=== PATIENT | male | born 1990 | race Caucasian/White ===

== ENCOUNTER 2019-12-02 10:52 | Inpatient (IN) | payer BC, MEDICAID, OTHER ==
[~2019-12-02] VITALS: Ht 170.2 cm; Wt 50.8 kg
[2019-12-02] MEDS ORDERED: IV NORMAL SALINE 1000ML BAG 1,000 ML IV SCH (11:12)
--- NOTE | 2019-12-02 11:20 | PHYS DOC ---
Past Medical History Past Medical History: Pneumonia, Other Additional Past Medical Histor: muscular dystrophy, trache, pneumothorax, silent aspirations, contractures (NIKITA JOEL [employer]) Past Surgical History: Tonsillectomy, Other Additional Past Surgical Histo: trache, rods and screws in spine, right ear grafts (NIKITA JOEL [employer]) Smoking Status: Never Smoker Alcohol Use: None Drug Use: None (NIKITA JOEL [employer]) General Adult EDM: Chief Complaint: BLOOD IN URINE HPI: HPI: Patient is a 29 year old male who presents with 2 days of back pain and abdominal pain with pain with urination. He states that he is also been constipated but had a bowel movement yesterday. He states he also ran a fever last night. He states he does not have any abdominal pain or back pain today. He was afebrile here in the ED. He had taken some ibuprofen. Patient currently complains of no pain. Patient denies chest pain, shortness of breath, cough, nausea, vomiting, diarrhea, headache, dizziness, focal weakness. Patient is in a motorized wheelchair. He has history of MS, trach, pneumothorax, silent aspirations, contractures, rods and screws in spine, tonsillectomy, right ear grafts. (NIKITA JOEL [employer]) Review of Systems: Review of Systems: Constitutional: + fever or chills. [] Eyes: Denies change in visual acuity. [] HENT: Denies nasal congestion or sore throat. [] Respiratory: Denies cough or shortness of breath. [] Cardiovascular: Denies chest pain or edema. [] GI: + abdominal pain, denies nausea, vomiting, bloody stools or diarrhea. +Constipation [] : +dysuria, +hematuria. [] Musculoskeletal: Bilateral flank back pain or denies joint pain. [] Integument: Denies rash. [] Neurologic: Denies headache, focal weakness or sensory changes. [] Endocrine: Denies polyuria or polydipsia. [] Lymphatic: Denies swollen glands. [] Psychiatric: Denies depression or anxiety. [] (NIKITA JOEL [employer]) Heart Score: Risk Factors: Risk Factors: DM, Current or recent (<one month) smoker, HTN, HLP, family history of CAD, obesity. Risk Scores: Score 0 - 3: 2.5% MACE over next 6 weeks - Discharge Home Score 4 - 6: 20.3% MACE over next 6 weeks - Admit for Clinical Observation Score 7 - 10: 72.7% MACE over next 6 weeks - Early Invasive Strategies (NIKITA JOEL [employer]) Allergies: Allergies: Allergies Coded Allergies Type Severity Reaction Last Updated Verified vancomycin Allergy Severe hives 09/08/14 No Sulfa (Sulfonamide Antibiotics) Allergy Intermediate 09/08/14 No amoxicillin Adverse Reaction Intermediate diarrhea 09/08/14 No clavulanic acid Adverse Reaction Intermediate diarrhea 09/08/14 No clindamycin Adverse Reaction Intermediate diarrhea 09/08/14 No (NIKITA JOEL [employer]) Physical Exam: PE: Constitutional: Well developed, well nourished, no acute distress, non-toxic appearance. [] HENT: Normocephalic, atraumatic, bilateral external ears normal, oropharynx moist, no oral exudates, nose normal. [] Eyes: PERRLA, EOMI, conjunctiva normal, no discharge. [] Neck: Normal range of motion, no tenderness, supple, no stridor. [] Cardiovascular:Heart rate regular rhythm, no murmur [] Lungs & Thorax: Bilateral breath sounds clear to auscultation [] Abdomen: Bowel sounds normal, soft, no tenderness, no masses, no pulsatile ma sses. [] Skin: Warm, dry, no erythema, no rash. [] Back: No tenderness, no CVA tenderness. [] Extremities: No tenderness, no cyanosis, no clubbing, ROM intact, no edema. Contractures. [] Neurologic: Alert and oriented X 3, normal motor function, normal sensory function, no focal deficits noted. [] Psychologic: Affect normal, judgement normal, mood normal. [] (NIKITA JOEL APRN) EKG: EK and read by Dr Chakraborty as Sinus Tachycardia and no STEMI (NIKITA JOEL APRN) Radiology/Procedures: Radiology/Procedures: [] Impression: [facility] [address] [place], [place] [id number] IMAGING REPORT Signed PATIENT: LALY NAVARRO RACCOUNT: [id number] : 1990 LOCATION: ER AGE: 29 SEX: M EXAM STATUS: REG ER ORD. PHYSICIAN: NIKITA JOEL APRN REASON: pain, urinary symptoms, fever PROCEDURE: CT ABD PELV W/ IV CONTRST ONLY EXAM: CT Abdomen and Pelvis with IV contrast INDICATION: Reason: pain, urinary symptoms, fever / Spl. Instructions: omni 300 75ml / History: TECHNIQUE: Multi-detector row CT images were acquired from the lung bases through the abdomen and pelvis with the use of IV contrast. Sagittal and coronal images were acquired from the transaxial data. All CT scans performed at this facility utilize dose optimization techniques as appropriate to the exam, including the following: Automated exposure control and adjustment of the mA and/or KV according to patient size (this includes techniques or standardized protocols for targeted exams where dose is indication/reason for exam). IV CONTRAST: Administered ORAL CONTRAST: Not administered COMPARISON: None FINDINGS: LOWER CHEST: Unremarkable LIVER: Unremarkable BILIARY SYSTEM: Gallbladder is unremarkable. Bile ducts are not dilated. PANCREAS: Unremarkable SPLEEN: Unremarkable ADRENALS: Unremarkable KIDNEYS & URETERS: Unremarkable BLADDER: Marked urinary bladder distention with wall thickening REPRODUCTIVE ORGANS: Unremarkable GASTROINTESTINAL: The stomach contains a percutaneous gastrostomy tube. The small bowel is fluid-filled but not distended. Some fibrofatty infiltration of the distal small bowel loops could reflect the sequelae of previous inflammation. Colon shows mostly liquid stool except in the rectum where fecal distention with solid debris to a 5.3 cm transverse diameter is present all the way to the anorectal junction.. The appendix is normal. MESENTERY/PERITONEUM/RETROPERITONEUM: Unremarkable VASCULAR: Unremarkable LYMPH NODES: No adenopathy OSSEOUS & SOFT TISSUES: Diffuse muscular atrophy in a pattern suggesting chronic quadriplegia. Extensive raphael and pedicle screw construct spinal fusion hardware is present from the sacrum through the upper thoracic spine and beyond the included field of view. There is residual mild leftward convexity scoliotic curvature. IMPRESSION: 1. Findings suspicious for cystitis with distended urinary bladder. Consider bladder decompression. 2. Findings compatible with rectal fecal impaction. 3. Evidence of chronic neurologic disease with extensive thoracolumbar spinal dorsal fusion hardware. 4. Fibrofatty infiltration of the distal small bowel wall, possibly reflecting previous episodes of bowel inflammation. Correlate clinically. Electronically signed by: Amaury Woo MD (12/02/2019 1:01 PM) [id number] DICTATED and SIGNED BY: AMAURY WOO MD DATE: 12/02/19 1301 [facility] [address] [place] [address] IMAGING REPORT Signed PATIENT: LALY NAVARRO RACCOUNT: [id number] : 1990 LOCATION: ER AGE: 29 SEX: M EXAM STATUS: REG ER ORD. PHYSICIAN: NIKITA JOEL APRN REASON: Fever, history of aspiration. PROCEDURE: PORTABLE CHEST 1V EXAM: PORTABLE CHEST 1V INDICATION: Reason: Fever, history of aspiration. / Spl. Instructions: / History: . TECHNIQUE: Single view COMPARISON: Abdomen CT of earlier the same day FINDINGS: A tracheostomy tube is present. The heart size is normal. The great vessels appear unremarkable. There is no hilar or mediastinal mass. The lungs are hypoventilatory and show mild prominence of the pulmonary interstitium. No focal infiltrates.. There is no pleural effusion or pneumothorax. There are no significant osseous abnormalities. Posterior raphael and pedicle screw construct spinal fusion hardware throughout the visualized thoracic spine is present. IMPRESSION: Tracheostomy tube with no obvious radiographic findings suspicious for pneumonia or aspiration pneumonitis. Electronically signed by: Amaury Woo MD (12/02/2019 1:34 PM) [id number] DICTATED and SIGNED BY: AMAURY WOO MD DATE: 12/02/19 1334 (NIKITA JOEL APRN) Course & Med Decision Making: Course & Med Decision Making Pertinent Labs and Imaging studies reviewed. (See chart for details) See HPI. Alert and oriented x4. Speaks in full complete sentences. Abdomen is soft and nontender. Vital signs within normal limits except heart rate of 120. Afebrile. No CVA tenderness. I Have started a liter of normal saline and ci profloxacin. Patient will have blood cultures and lactic acid drawn. CT shows: IMPRESSION: 1. Findings suspicious for cystitis with distended urinary bladder. Consider bladder decompression. 2. Findings compatible with rectal fecal impaction. 3. Evidence of chronic neurologic disease with extensive thoracolumbar spinal dorsal fusion hardware. 4. Fibrofatty infiltration of the distal small bowel wall, possibly reflecting previous episodes of bowel inflammation. Correlate clinically. I have ordered a Bladder scan and nurse to Straight Cath if 300ml or more in bladder. Patient is given a second liter of NS. I have also ordered a enema for the patient. Patient is afebrile, WBC normal, lactic normal. Urinalysis shows nitrites. Patient to be admitted for pyelonephritis and his heart rate remains constant at 120. He is a 2 L of fluid. Grandmother states that she only stays with the patient and that she needs to stay with the patient and she would like him transferred to . She states he has to be on a ventilator at night. She states she could bring the ventilators because we have to have his specific numbers he has to be on. I told the grandmother that we can take care of this patient here and currently states that it could be 24 hours before the patient even gets a room. I have let the grandmother know that [facility] nor would let her stay with the patient 15/09 especially due to COVID and in the ICU. Patient's grandmother states " You do not understand. He has to have me there because he is so soft-spoken and he has needs." I told the patient that the nurses will be checking on him frequently and they would take good care of him here. Patient is refusing an enema. He states he wants another dose of MiraLAX and he will be able to have a bowel movement. He states [address] Chakraborty has spoken to the family as ICU will not let her stay. Dr Chakraborty has spoken to Dr Rodlan and Dr. Roldan states that the family can bring in their own ventilator is for us to use here. Dr. Phillips has admitted to the patient. [] (NIKITA JOEL APRN) Erinn Disclaimer: Erinn Disclaimer: This electronic medical record was generated, in whole or in part, using a voice recognition dictation system. (NIKITA JOEL APRN) Departure Departure Impression: Primary Impression: Pyelonephritis Disposition: ADMITTED INPT THIS HOSP Condition: STABLE Referrals: NON,STAFF (PCP) Attending Signature Attending Signature I have reviewed the non-physician practitioner's documentation, personally taken the patient's history, performed an exam and agree with the physical findings, clinical impression, and management plan. In brief patient is a 29-year-old male with a history of multiple sclerosis who presents with a chief complaint of flank pain and dysuria. Urine does show evidence of infection. Clinically this is concerning for pyelonephritis. Patient will be given ciprofloxacin given his multiple drug allergies. He will require hospitalization for further antibiotic treatment. (MOSHE CHAKRABORTY DO) Attending Signature I have participated in the care of this patient and I have reviewed and agree with all pertinent clinical information above including history, exam, and recommendations. (NIKITA JOEL APRN) NIKITA JOEL APRN Dec 02, 2019 11:20 MOSHE CHAKRABORTY DO Dec 02, 2019 13:27
[2019-12-02 11:25] LABS: BILIRUBIN,URINE NEGATIVE (NEG); CLARITY,URINE TURBID; COLOR,URINE RED; NITRITE,URINE POSITIVE (NEG); PROTEIN,URINE >=300 mg/dL (NEG-TRACE)
[2019-12-02] MEDS ORDERED: CIPROFLOXACIN 400MG PREMIX 200 ML IV ONE (11:30)
[2019-12-02 11:36] LABS: RBC,URINE 20-40 /HPF (0-2); WBC,URINE TNTC /HPF (0-4)
[2019-12-02 11:37] LABS: BACTERIA,URINE FEW /HPF (0-FEW)
[2019-12-02 12:00] LABS: BASO % 0 % (0-3); EOS % 1 % (0-3); HEMATOCRIT 51.3 % (39.0-53.0); HEMOGLOBIN 17.1 g/dL (13.0-17.5); LYMPH # 0.5 x10^3/uL (1.0-4.8); LYMPH % 6 % (24-48); MEAN CORPUSCULAR HEMOGLOBIN 30 pg (25-35); MEAN CORPUSCULAR HGB CONC 33 g/dL (31-37); MEAN CORPUSCULAR VOLUME 91 fL (79-100); MONO # 0.5 x10^3/uL (0.0-1.1); MONO % 6 % (0-9); NEUT # 7.4 x10^3/uL (1.8-7.7); NEUT % 88 % (31-73); PLATELET COUNT 115 x10^3/uL (140-400); RED BLOOD COUNT 5.66 x10^6/uL (4.30-5.70); RED CELL DISTRIBUTION WIDTH 14.1 % (11.5-14.5); WHITE BLOOD COUNT 8.4 x10^3/uL (4.0-11.0)
[2019-12-02 12:19] LABS: ANION GAP 10 (6-14); BLOOD UREA NITROGEN 15 mg/dL (8-26); BUN/CREATININE RATIO 75 (6-20); CALCIUM 9.3 mg/dL (8.5-10.1); CARBON DIOXIDE 23 mmol/L (21-32); CHLORIDE 108 mmol/L (98-107); CREATININE 0.2 mg/dL (0.7-1.3); GFR > 300.0; GLUCOSE 123 mg/dL (70-99); POTASSIUM 3.7 mmol/L (3.5-5.1); SODIUM 141 mmol/L (136-145)
[2019-12-02 12:23] LABS: ALBUMIN 3.4 g/dL (3.4-5.0); ALBUMIN/GLOBULIN RATIO 0.8 (1.0-1.7); ALK PHOS 133 U/L (46-116); ALT (SGPT) 21 U/L (16-63); AST (SGOT) 18 U/L (15-37); LIPASE 74 U/L (73-393); TOTAL PROTEIN 7.8 g/dL (6.4-8.2)
[2019-12-02] MEDS ORDERED: CONTRAST GIVEN. MC PRN (12:30)
[2019-12-02] MEDS ORDERED: IOHEXOL 300 MG/ML 100ML VIAL. IV ONE (12:30)
[2019-12-02 12:36] LABS: PROTHROMBIN TIME PATIENT 17.1 SEC (11.7-14.0)
[2019-12-02] MEDS ORDERED: IV NORMAL SALINE 1000ML BAG 1,000 ML IV ONE (13:00)
--- NOTE | 2019-12-02 13:05 | RAD ---
EXAM: CT Abdomen and Pelvis with IV contrast INDICATION: Reason: pain, urinary symptoms, fever / Spl. Instructions: omni 300 75ml / History: TECHNIQUE: Multi-detector row CT images were acquired from the lung bases through the abdomen and pelvis with the use of IV contrast. Sagittal and coronal images were acquired from the transaxial data. All CT scans performed at this facility utilize dose optimization techniques as appropriate to the exam, including the following: Automated exposure control and adjustment of the mA and/or KV according to patient size (this includes techniques or standardized protocols for targeted exams where dose is indication/reason for exam). IV CONTRAST: Administered ORAL CONTRAST: Not administered COMPARISON: None FINDINGS: LOWER CHEST: Unremarkable LIVER: Unremarkable BILIARY SYSTEM: Gallbladder is unremarkable. Bile ducts are not dilated. PANCREAS: Unremarkable SPLEEN: Unremarkable ADRENALS: Unremarkable KIDNEYS & URETERS: Unremarkable BLADDER: Marked urinary bladder distention with wall thickening REPRODUCTIVE ORGANS: Unremarkable GASTROINTESTINAL: The stomach contains a percutaneous gastrostomy tube. The small bowel is fluid-filled but not distended. Some fibrofatty infiltration of the distal small bowel loops could reflect the sequelae of previous inflammation. Colon shows mostly liquid stool except in the rectum where fecal distention with solid debris to a 5.3 cm transverse diameter is present all the way to the anorectal junction.. The appendix is normal. MESENTERY/PERITONEUM/RETROPERITONEUM: Unremarkable VASCULAR: Unremarkable LYMPH NODES: No adenopathy OSSEOUS & SOFT TISSUES: Diffuse muscular atrophy in a pattern suggesting chronic quadriplegia. Extensive raphael and pedicle screw construct spinal fusion hardware is present from the sacrum through the upper thoracic spine and beyond the included field of view. There is residual mild leftward convexity scoliotic curvature. IMPRESSION: 1. Findings suspicious for cystitis with distended urinary bladder. Consider bladder decompression. 2. Findings compatible with rectal fecal impaction. 3. Evidence of chronic neurologic disease with extensive thoracolumbar spinal dorsal fusion hardware. 4. Fibrofatty infiltration of the distal small bowel wall, possibly reflecting previous episodes of bowel inflammation. Correlate clinically. Electronically signed by: Wayne Woo MD (12/02/2019 1:01 PM) [id number]
[2019-12-02] MEDS ORDERED: SODIUM PHOSPHATES 19/7GM 133 ML ENEMA. PR ONE (13:15)
--- NOTE | 2019-12-02 13:37 | RAD ---
EXAM: PORTABLE CHEST 1V INDICATION: Reason: Fever, history of aspiration. / Spl. Instructions: / History: . TECHNIQUE: Single view COMPARISON: Abdomen CT of earlier the same day FINDINGS: A tracheostomy tube is present. The heart size is normal. The great vessels appear unremarkable. There is no hilar or mediastinal mass. The lungs are hypoventilatory and show mild prominence of the pulmonary interstitium. No focal infiltrates.. There is no pleural effusion or pneumothorax. There are no significant osseous abnormalities. Posterior raphael and pedicle screw construct spinal fusion hardware throughout the visualized thoracic spine is present. IMPRESSION: Tracheostomy tube with no obvious radiographic findings suspicious for pneumonia or aspiration pneumonitis. Electronically signed by: Wayne Woo MD (12/02/2019 1:34 PM) [id number]
[2019-12-02] MEDS ORDERED: POLYETHYLENE GLYCOL 3350 17 GM PACKET. PO ONE (14:45)
[2019-12-02 15:04] LABS: % BANDS 18 % (0-9); % LYMPHS 7 % (24-48); % MONOS 7 % (0-10); % SEGS 68 % (35-66); PLATELET CLUMP PRESENT; PLT ESTIMATE ADEQUATE (ADEQUATE); TOXIC GRANULATION SLIGHT
[2019-12-02] MEDS ORDERED: 0.9 % SODIUM CHLORIDE 10 ML DISP.SYRIN. IV PRN (15:30)
[2019-12-02] MEDS ORDERED: HYDROcodone/APAP 5/325MG 1 TAB TABLET PO PRN (15:30)
[2019-12-02] MEDS ORDERED: LACTULOSE 20 GM/30 ML SOLUTION. PO PRN ×2 (15:30→23:45)
[2019-12-02] MEDS ORDERED: oxyCODONE/APAP 5/325 1 TAB TABLET PO PRN (15:30)
[2019-12-02] MEDS ORDERED: ACETAMINOPHEN 325 MG TABLET. PO PRN (15:30)
[2019-12-02] MEDS ORDERED: ONDANSETRON PF 4 MG/2 ML VIAL. IVP PRN (15:30)
[2019-12-02] MEDS ORDERED: MORPHINE SULFATE 2 MG/ML VIAL. IV PRN (15:30)
[2019-12-02] MEDS ORDERED: ZOLPIDEM 5 MG TABLET. PO PRN (15:30)
--- NOTE | 2019-12-02 16:52 | PDOC1 ---
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 The patient is uable to provide much details since he has a trach in place and no passy mouir valve, He seems acutely ill but currently in no acute distress, he is oriented in person and does nto seem to be in respiratory distress, no abdominal pain reported, he denies fever or chills but according to documentatiton he presented fever at home reason why he was brought to the Er for further evaluation and treatment. Patient suffers from multiple sclerosis and apparently has been wheelchair-bound for a long time now. Patient has reported had a fever last evening but he does not seem to be coughing nor having an acute chest discomfort. Patient is laying on the stretcher in no apparent distress plan of care has been explained in detail to the patient to the best of my abilities. He will be admitted for broad-spectrum antibiotic therapy and close monitoring. His laboratory data seems quite unremarkable despite having the findings on CAT scan consistent with pyelonephritis. Hopefully this is a early stages and we managed to overt complications from a generalized infection. 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 He states that he is also been constipated but had a bowel movement yesterday. He states he also ran a fever last night. He states he does not have any abdominal pain or back pain today. He was afebrile here in the ED. He had taken some ibuprofen. Patient currently complains of no pain. Patient denies chest pain, shortness of breath, cough, nausea, vomiting, diarrhea, headache, dizziness, focal weakness. Patient is in a motorized wheelchair. He has history of MS, trach, pneumothorax, silent aspirations, contractures, rods and screws in spine, tonsillectomy, right ear grafts. Past Medical History Pulmonary: Pneumonia CENTRAL NERVOUS SYSTEM: Other (Multiple sclerosis) Past Surgical History Past Surgical History: Tonsillectomy, No pertinent history (Tracheostomy in place) Family History Family History: Family History Unknown Social History Smoke: No ALCOHOL: none Drugs: None Current Problem List Problem List Problems Medical Problems: (1) Pyelonephritis Status: Acute Current Medications Current Medications Current Medications Medications (Trade) Dose Ordered Sig/Maximilian Start Time Stop Time Status Last Admin Dose Admin Acetaminophen (Tylenol) 650 mg PRN Q6HRS PRN 12/02/19 15:30 Acetaminophen/ Hydrocodone Bitart (Lortab 5/325) 1 tab PRN Q4HRS PRN 12/02/19 15:30 Ceftriaxone Sodium (Rocephin) 1 gm Q24H 12/02/19 17:00 Ciprofloxacin/ Dextrose 200 ml @ 200 mls/hr 1X ONCE 12/02/19 11:30 12/02/19 12:29 DC 12/02/19 12:08 200 MLS/HR Enoxaparin Sodium (Lovenox 40mg Syringe) 40 mg Q24H 12/02/19 21:00 Famotidine (Pepcid) 20 mg BID 12/02/19 21:00 Info (CONTRAST GIVEN -- Rx MONITORING) 1 each PRN DAILY PRN 12/02/19 12:30 12/04/19 12:29 Info (Icu Electrolyte Protocol) 1 ea DAILY 12/03/19 09:00 Iohexol (Omnipaque 300 Mg/ml) 75 ml 1X ONCE 12/02/19 12:30 12/02/19 12:31 DC 12/02/19 12:46 75 ML Lactulose (Lactulose) 20 gm PRN Q12HR PRN 12/02/19 15:30 Lorazepam (Ativan Inj) 0.5 mg PRN Q6HRS PRN 12/02/19 15:30 Morphine Sulfate (Morphine Sulfate) 2 mg PRN Q1HR PRN 12/02/19 15:30 Ondansetron HCl (Zofran) 4 mg PRN Q6HRS PRN 12/02/19 15:30 Oxycodone/ Acetaminophen (Percocet 5/325) 1 tab PRN Q4HRS PRN 12/02/19 15:30 Polyethylene Glycol (miraLAX PACKET) 17 gm 1X ONCE 12/02/19 14:45 12/02/19 14:46 DC Senna/Docusate Sodium (Senna Plus) 1 tab BID 12/02/19 21:00 Sodium Monofluorophosphate (Fleet Adult) 133 ml 1X ONCE 12/02/19 13:15 12/02/19 13:16 DC Sodium Chloride (Normal Saline Flush) 3 ml QSHIFT PRN 12/02/19 15:30 Zolpidem Tartrate (Ambien) 5 mg PRN QHS PRN 12/02/19 15:30 Allergies Allergies Allergies Coded Allergies Type Severity Reaction Last Updated Verified vancomycin Allergy Severe hives 09/08/14 No Sulfa (Sulfonamide Antibiotics) Allergy Intermediate 09/08/14 No amoxicillin Adverse Reaction Intermediate diarrhea 09/08/14 No clavulanic acid Adverse Reaction Intermediate diarrhea 09/08/14 No clindamycin Adverse Reaction Intermediate diarrhea 09/08/14 No ROS Review of System CONSTITUTIONAL: No fever or chills EYES: No recent changes SKIN: No rash or itching CARDIOVASCULAR: No chest pain, syncope, palpitations, or edema RESPIRATORY: No SOB or cough GASTROINTESTINAL: No nausea, vomiting or abdominal pain NEUROLOGICAL: No headaches or weakness ENDOCRINE: No cold or heat intolerance GENITOURINARY: No urgency or frequency of urination MUSCULOSKELETAL: No back pain or joint pain LYMPHATICS: No enlarged lymph nodes PSYCHIATRIC: No anxiety or depression Unreliable given patient's condition Physical Exam Physical Exam GEN.: No apparent distress. Alert and oriented in person HEENT: Head is normocephalic, atraumatic NECK: Supple. LUNGS: Clear to auscultation. HEART: RRR, S1, S2 present. Tachycardic peripheral pulses intact ABDOMEN: Soft, nontender. Distended positive bowel sounds. EXTREMITIES: Without any cyanosis. NEUROLOGIC: Cranial nerves II to XII grossly intact moves all extremities no sensory deficits PSYCHIATRIC: Unable to assess SKIN: No ulcerations Vitals Vitals Vital Signs Date Time Temp Pulse Resp B/P (MAP) Pulse Ox O2 Delivery O2 Flow Rate FiO2 12/02/19 11:13 98.3 120 18 128/80 (96) 97 Room Air 98.3 Labs Labs Laboratory Tests Test 12/02/19 11:08 12/02/19 11:45 12/02/19 12:15 Urine Collection Type Unknown Urine Color Red Urine Clarity Turbid Urine pH 6.0 (<5.0-8.0) Urine Specific [place] 1.015 (1.000-1.030) Urine Protein >=300 mg/dL (NEG-TRACE) Urine Glucose (UA) Negative mg/dL (NEG) Urine Ketones (Stick) Trace mg/dL (NEG) Urine Blood Large (NEG) Urine Nitrite Positive (NEG) Urine Bilirubin Negative (NEG) Urine Urobilinogen Dipstick 1.0 mg/dL (0.2 mg/dL) Urine Leukocyte Esterase Large (NEG) Urine RBC 20-40 /HPF (0-2) Urine WBC Tntc /HPF (0-4) Urine Squamous Epithelial Cells None /LPF Urine Bacteria Few /HPF (0-FEW) White Blood Count 8.4 x10^3/uL (4.0-11.0) Red Blood Count 5.66 x10^6/uL (4.30-5.70) Hemoglobin 17.1 g/dL (13.0-17.5) Hematocrit 51.3 % (39.0-53.0) Mean Corpuscular Volume 91 fL (79-100) Mean Corpuscular Hemoglobin 30 pg (25-35) Mean Corpuscular Hemoglobin Concent 33 g/dL (31-37) Red Cell Distribution Width 14.1 % (11.5-14.5) Platelet Count 115 x10^3/uL (140-400) Neutrophils (%) (Auto) 88 % (31-73) Lymphocytes (%) (Auto) 6 % (24-48) Monocytes (%) (Auto) 6 % (0-9) Eosinophils (%) (Auto) 1 % (0-3) Basophils (%) (Auto) 0 % (0-3) Neutrophils # (Auto) 7.4 x10^3/uL (1.8-7.7) Lymphocytes # (Auto) 0.5 x10^3/uL (1.0-4.8) Monocytes # (Auto) 0.5 x10^3/uL (0.0-1.1) Eosinophils # (Auto) 0.0 x10^3/uL (0.0-0.7) Basophils # (Auto) 0.0 x10^3/uL (0.0-0.2) Segmented Neutrophils % 68 % (35-66) Band Neutrophils % 18 % (0-9) Lymphocytes % 7 % (24-48) Monocytes % 7 % (0-10) Toxic Granulation Slight Platelet Estimate Adequate (ADEQUATE) Platelet Clumps, EDTA Present Giant Platelets Occ Sodium Level 141 mmol/L (136-145) Potassium Level 3.7 mmol/L (3.5-5.1) Chloride Level 108 mmol/L (98-107) Carbon Dioxide Level 23 mmol/L (21-32) Anion Gap 10 (6-14) Blood Urea Nitrogen 15 mg/dL (8-26) Creatinine 0.2 mg/dL (0.7-1.3) Estimated GFR (Cockcroft-Gault) > 300.0 BUN/Creatinine Ratio 75 (6-20) Glucose Level 123 mg/dL (70-99) Lactic Acid Level 1.6 mmol/L (0.4-2.0) Calcium Level 9.3 mg/dL (8.5-10.1) Total Bilirubin 1.0 mg/dL (0.2-1.0) Aspartate Amino Transf (AST/SGOT) 18 U/L (15-37) Alanine Aminotransferase (ALT/SGPT) 21 U/L (16-63) Alkaline Phosphatase 133 U/L (46-116) Total Protein 7.8 g/dL (6.4-8.2) Albumin 3.4 g/dL (3.4-5.0) Albumin/Globulin Ratio 0.8 (1.0-1.7) Lipase 74 U/L (73-393) Prothrombin Time 17.1 SEC (11.7-14.0) Prothromb Time International Ratio 1.4 (0.8-1.1) Laboratory Tests Test 12/02/19 11:08 12/02/19 11:45 12/02/19 12:15 Urine Collection Type Unknown Urine Color Red Urine Clarity Turbid Urine pH 6.0 (<5.0-8.0) Urine Specific [place] 1.015 (1.000-1.030) Urine Protein >=300 mg/dL (NEG-TRACE) Urine Glucose (UA) Negative mg/dL (NEG) Urine Ketones (Stick) Trace mg/dL (NEG) Urine Blood Large (NEG) Urine Nitrite Positive (NEG) Urine Bilirubin Negative (NEG) Urine Urobilinogen Dipstick 1.0 mg/dL (0.2 mg/dL) Urine Leukocyte Esterase Large (NEG) Urine RBC 20-40 /HPF (0-2) Urine WBC Tntc /HPF (0-4) Urine Squamous Epithelial Cells None /LPF Urine Bacteria Few /HPF (0-FEW) White Blood Count 8.4 x10^3/uL (4.0-11.0) Red Blood Count 5.66 x10^6/uL (4.30-5.70) Hemoglobin 17.1 g/dL (13.0-17.5) Hematocrit 51.3 % (39.0-53.0) Mean Corpuscular Volume 91 fL (79-100) Mean Corpuscular Hemoglobin 30 pg (25-35) Mean Corpuscular Hemoglobin Concent 33 g/dL (31-37) Red Cell Distribution Width 14.1 % (11.5-14.5) Platelet Count 115 x10^3/uL (140-400) Neutrophils (%) (Auto) 88 % (31-73) Lymphocytes (%) (Auto) 6 % (24-48) Monocytes (%) (Auto) 6 % (0-9) Eosinophils (%) (Auto) 1 % (0-3) Basophils (%) (Auto) 0 % (0-3) Neutrophils # (Auto) 7.4 x10^3/uL (1.8-7.7) Lymphocytes # (Auto) 0.5 x10^3/uL (1.0-4.8) Monocytes # (Auto) 0.5 x10^3/uL (0.0-1.1) Eosinophils # (Auto) 0.0 x10^3/uL (0.0-0.7) Basophils # (Auto) 0.0 x10^3/uL (0.0-0.2) Segmented Neutrophils % 68 % (35-66) Band Neutrophils % 18 % (0-9) Lymphocytes % 7 % (24-48) Monocytes % 7 % (0-10) Toxic Granulation Slight Platelet Estimate Adequate (ADEQUATE) Platelet Clumps, EDTA Present Giant Platelets Occ Sodium Level 141 mmol/L (136-145) Potassium Level 3.7 mmol/L (3.5-5.1) Chloride Level 108 mmol/L (98-107) Carbon Dioxide Level 23 mmol/L (21-32) Anion Gap 10 (6-14) Blood Urea Nitrogen 15 mg/dL (8-26) Creatinine 0.2 mg/dL (0.7-1.3) Estimated GFR (Cockcroft-Gault) > 300.0 BUN/Creatinine Ratio 75 (6-20) Glucose Level 123 mg/dL (70-99) Lactic Acid Level 1.6 mmol/L (0.4-2.0) Calcium Level 9.3 mg/dL (8.5-10.1) Total Bilirubin 1.0 mg/dL (0.2-1.0) Aspartate Amino Transf (AST/SGOT) 18 U/L (15-37) Alanine Aminotransferase (ALT/SGPT) 21 U/L (16-63) Alkaline Phosphatase 133 U/L (46-116) Total Protein 7.8 g/dL (6.4-8.2) Albumin 3.4 g/dL (3.4-5.0) Albumin/Globulin Ratio 0.8 (1.0-1.7) Lipase 74 U/L (73-393) Prothrombin Time 17.1 SEC (11.7-14.0) Prothromb Time International Ratio 1.4 (0.8-1.1) VTE Prophylaxis Ordered VTE Prophylaxis Devices: No VTE Pharmacological Prophylaxi: Yes Assessment/Plan Assessment/Plan Pyelonephritis History of MS Wheelchair-bound Thrombocytopenia Bandemia could represent early sepsis present on admission but no other markers positive for sepsis given normal lactic acid Cystitis as per CT scan Plan Broad-spectrum antibiotics with ceftriaxone Resume supportive measures Replace electrolytes as needed Follow urinary output We will provide oral resuscitation Resume home medications once available for review DVT prophylaxis with Lovenox Further recommendations based on the clinical course Justifications for Admission Other Justification JUDY BOLTON MD Dec 02, 2019 16:52
[2019-12-02 19:00] VITALS: BP 132/93
[2019-12-02] MEDS ORDERED: UBID200C7 GT (19:05)
[2019-12-02] MEDS ORDERED: CALC500O GT (19:05)
[2019-12-02] MEDS ORDERED: ESOM40CA47 GT (19:10)
[2019-12-02] MEDS ORDERED: TERA2CAP3 GT (19:10)
[2019-12-02] MEDS ORDERED: FLUT16SP NS (19:10)
[2019-12-02] MEDS ORDERED: LACT10SO35 GT (19:10)
--- NOTE | 2019-12-02 19:10 | EKG ---
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
[2019-12-02] MEDS ORDERED: ACET650S GT (19:18)
[2019-12-02] MEDS ORDERED: ALBU2.5V14 NEB (19:18)
[2019-12-02] MEDS ORDERED: BORIC ACID (19:18)
[2019-12-02] MEDS ORDERED: PHEN240L GT (19:18)
[2019-12-02] MEDS ORDERED: POLY17PO29 GT (19:28)
[2019-12-02] MEDS ORDERED: NEOM1OIN6 TP (19:28)
[2019-12-02] MEDS ORDERED: IBUP100O27 GT (19:28)
[2019-12-02] MEDS ORDERED: PHEN28OI8 RC (19:28)
[2019-12-02] MEDS ORDERED: BORIC ACID AD (19:28)
--- NOTE | 2019-12-02 19:33 | NUR ---
See ED charting for IV medications given prior to patient arriving on unit.
--- NOTE | 2019-12-02 19:34 | NUR ---
The patient, LALY NAVARRO, 29 y/o, M admitted by JUDY BOLTON MD, was given written information regarding hospital policies, unit procedures and contact persons. Pt accompanied by [employer] and multiple home equipment pieces. Pt home electric wheelchair, trilogy vent, suction, and vent warmer all brought with patient.
[2019-12-02] MEDS ORDERED: HYDR30CR74 TP (19:42)
[2019-12-02] MEDS ORDERED: SENN8.8S5 GT (19:42)
[2019-12-02] MEDS ORDERED: TERB30CR13 TP (19:42)
[2019-12-02] MEDS ORDERED: TOLN150S2 TP (19:42)
[2019-12-02] MEDS ORDERED: SODIUM CHLORIDE 0.9% INH (19:42)
[2019-12-02] MEDS ORDERED: KETO15CR2 TP (19:42)
[2019-12-02] MEDS ORDERED: CLOT15CR23 TP (19:42)
[2019-12-02] MEDS ORDERED: NYST15OI TP (19:42)
[2019-12-02] MEDS ORDERED: ZINC56CR2 TP (19:42)
[2019-12-02] MEDS ORDERED: PSYL0.526 GT (19:42)
[2019-12-02] MEDS ORDERED: LACT1CAP6 GT (19:43)
[2019-12-02] MEDS: ALBUTEROL SULFATE 2.5 MG/3 ML NEBU. NEB SCH ×2 (19:54→23:14)
[2019-12-02] MEDS: ENOXAPARIN 40 MG/0.4 ML SYRINGE. SQ SCH ×2 (21:00→21:19)
[2019-12-02] MEDS: SENNOSIDES/DOCUSATE 8.6/50MG TABLET. PO SCH (21:18)
[2019-12-02] MEDS: FAMOTIDINE 20 MG TABLET. PO SCH (21:18)
[2019-12-02] MEDS: cefTRIAXone IV Push 1 GM VIAL. IVP SCH (21:19)
[2019-12-02] MEDS ORDERED: POLYETHYLENE GLYCOL 3350 17 GM PACKET. PO PRN (22:15)
[2019-12-02] MEDS ORDERED: TERAZOSIN 1 MG CAPSULE. PO ONE (22:30)
[2019-12-02 22:49] VITALS: BP 104/60
[2019-12-02] MEDS: IBUPROFEN 100 MG/5 ML ORAL.SUSP. GT PRN (22:57)
[2019-12-02] MEDS ORDERED: CLOTRIMAZOLE 1% TOPICAL CREAM 15GM TUBE. TP PRN (23:45)
[2019-12-02] MEDS ORDERED: KETOCONAZOLE 2% TOPICAL CREAM 15GM TUBE. TP PRN (23:45)
[2019-12-02] MEDS ORDERED: NEOMY/BACITR/POLYMYXIN OINT PACKET. TP PRN (23:45)
[2019-12-02] MEDS ORDERED: ACETAMINOPHEN 650 MG/20.3 ML SOLUTION. GT PRN (23:45)
[2019-12-02] MEDS ORDERED: TERBINAFINE HCL TP PRN (23:45)
[2019-12-02] MEDS ORDERED: FLUTICASONE 50MCG/NASAL SPRAY 16GM BOTTLE. NS PRN (23:45)
[2019-12-02] MEDS ORDERED: NYSTATIN 100,000 UNIT/GM TOPICAL OINTMENT 15GM TUBE. TP PRN (23:45)
[2019-12-03] MEDS ORDERED: ZINC OXIDE 20% TOPICAL OINTMENT 28GM TUBE. TP PRN (00:15)
[2019-12-03] MEDS ORDERED: TOLNAFTATE 1% TOPICAL SPRAY POWDER 133GM CAN. TP PRN (00:15)
[2019-12-03] MEDS ORDERED: LACTULOSE 20 GM/30 ML SOLUTION. PO PRN (00:19)
[2019-12-03] MEDS ORDERED: HYDROCORTISONE 1% TOPICAL CREAM 30GM TUBE. TP PRN (00:30)
[2019-12-03 02:25] VITALS: BP 96/54
[2019-12-03 05:01] LABS: BASO % 0 % (0-3); EOS # 0.1 x10^3/uL (0.0-0.7); EOS % 2 % (0-3); HEMATOCRIT 40.1 % (39.0-53.0); HEMOGLOBIN 13.4 g/dL (13.0-17.5); LYMPH # 1.3 x10^3/uL (1.0-4.8); LYMPH % 18 % (24-48); MEAN CORPUSCULAR HEMOGLOBIN 30 pg (25-35); MEAN CORPUSCULAR HGB CONC 34 g/dL (31-37); MEAN CORPUSCULAR VOLUME 90 fL (79-100); MONO # 0.8 x10^3/uL (0.0-1.1); MONO % 11 % (0-9); NEUT % 70 % (31-73); PLATELET COUNT 119 x10^3/uL (140-400); RED BLOOD COUNT 4.45 x10^6/uL (4.30-5.70); RED CELL DISTRIBUTION WIDTH 14.1 % (11.5-14.5); WHITE BLOOD COUNT 7.2 x10^3/uL (4.0-11.0)
[2019-12-03 05:37] LABS: ANION GAP 9 (6-14); BLOOD UREA NITROGEN 15 mg/dL (8-26); CALCIUM 8.7 mg/dL (8.5-10.1); CARBON DIOXIDE 22 mmol/L (21-32); CHLORIDE 109 mmol/L (98-107); GFR > 300.0; GLUCOSE 68 mg/dL (70-99); POTASSIUM 3.1 mmol/L (3.5-5.1); SODIUM 140 mmol/L (136-145)
[2019-12-03 05:39] LABS: CREATININE 0.2 mg/dL (0.7-1.3)
[2019-12-03] MEDS: ALBUTEROL SULFATE 2.5 MG/3 ML NEBU. NEB SCH ×4 (06:24→22:17)
[2019-12-03 07:00] VITALS: BP 104/61
--- NOTE | 2019-12-03 08:22 | PDOC ---
PULMONARY PROGRESS NOTES DATE: 12/03/19 TIME: 08:21 Vitals Vital Signs Date Time Temp Pulse Resp B/P (MAP) Pulse Ox O2 Delivery O2 Flow Rate FiO2 12/03/19 07:00 98.6 67 22 104/61 (75) 99 Room Air 98.6 Labs Laboratory Tests Test 12/02/19 11:08 12/02/19 11:45 12/02/19 12:15 12/03/19 04:30 Urine Collection Type Unknown Urine Color Red Urine Clarity Turbid Urine pH 6.0 (<5.0-8.0) Urine Specific [place] 1.015 (1.000-1.030) Urine Protein >=300 mg/dL (NEG-TRACE) Urine Glucose (UA) Negative mg/dL (NEG) Urine Ketones (Stick) Trace mg/dL (NEG) Urine Blood Large (NEG) Urine Nitrite Positive (NEG) Urine Bilirubin Negative (NEG) Urine Urobilinogen Dipstick 1.0 mg/dL (0.2 mg/dL) Urine Leukocyte Esterase Large (NEG) Urine RBC 20-40 /HPF (0-2) Urine WBC Tntc /HPF (0-4) Urine Squamous Epithelial Cells None /LPF Urine Bacteria Few /HPF (0-FEW) White Blood Count 8.4 x10^3/uL (4.0-11.0) 7.2 x10^3/uL (4.0-11.0) Red Blood Count 5.66 x10^6/uL (4.30-5.70) 4.45 x10^6/uL (4.30-5.70) Hemoglobin 17.1 g/dL (13.0-17.5) 13.4 g/dL (13.0-17.5) Hematocrit 51.3 % (39.0-53.0) 40.1 % (39.0-53.0) Mean Corpuscular Volume 91 fL (79-100) 90 fL (79-100) Mean Corpuscular Hemoglobin 30 pg (25-35) 30 pg (25-35) Mean Corpuscular Hemoglobin Concent 33 g/dL (31-37) 34 g/dL (31-37) Red Cell Distribution Width 14.1 % (11.5-14.5) 14.1 % (11.5-14.5) Platelet Count 115 x10^3/uL (140-400) 119 x10^3/uL (140-400) Neutrophils (%) (Auto) 88 % (31-73) 70 % (31-73) Lymphocytes (%) (Auto) 6 % (24-48) 18 % (24-48) Monocytes (%) (Auto) 6 % (0-9) 11 % (0-9) Eosinophils (%) (Auto) 1 % (0-3) 2 % (0-3) Basophils (%) (Auto) 0 % (0-3) 0 % (0-3) Neutrophils # (Auto) 7.4 x10^3/uL (1.8-7.7) 5.0 x10^3/uL (1.8-7.7) Lymphocytes # (Auto) 0.5 x10^3/uL (1.0-4.8) 1.3 x10^3/uL (1.0-4.8) Monocytes # (Auto) 0.5 x10^3/uL (0.0-1.1) 0.8 x10^3/uL (0.0-1.1) Eosinophils # (Auto) 0.0 x10^3/uL (0.0-0.7) 0.1 x10^3/uL (0.0-0.7) Basophils # (Auto) 0.0 x10^3/uL (0.0-0.2) 0.0 x10^3/uL (0.0-0.2) Segmented Neutrophils % 68 % (35-66) Band Neutrophils % 18 % (0-9) Lymphocytes % 7 % (24-48) Monocytes % 7 % (0-10) Toxic Granulation Slight Platelet Estimate Adequate (ADEQUATE) Platelet Clumps, EDTA Present Giant Platelets Occ Sodium Level 141 mmol/L (136-145) 140 mmol/L (136-145) Potassium Level 3.7 mmol/L (3.5-5.1) 3.1 mmol/L (3.5-5.1) Chloride Level 108 mmol/L (98-107) 109 mmol/L (98-107) Carbon Dioxide Level 23 mmol/L (21-32) 22 mmol/L (21-32) Anion Gap 10 (6-14) 9 (6-14) Blood Urea Nitrogen 15 mg/dL (8-26) 15 mg/dL (8-26) Creatinine 0.2 mg/dL (0.7-1.3) 0.2 mg/dL (0.7-1.3) Estimated GFR (Cockcroft-Gault) > 300.0 > 300.0 BUN/Creatinine Ratio 75 (6-20) Glucose Level 123 mg/dL (70-99) 68 mg/dL (70-99) Lactic Acid Level 1.6 mmol/L (0.4-2.0) Calcium Level 9.3 mg/dL (8.5-10.1) 8.7 mg/dL (8.5-10.1) Total Bilirubin 1.0 mg/dL (0.2-1.0) Aspartate Amino Transf (AST/SGOT) 18 U/L (15-37) Alanine Aminotransferase (ALT/SGPT) 21 U/L (16-63) Alkaline Phosphatase 133 U/L (46-116) Total Protein 7.8 g/dL (6.4-8.2) Albumin 3.4 g/dL (3.4-5.0) Albumin/Globulin Ratio 0.8 (1.0-1.7) Lipase 74 U/L (73-393) Prothrombin Time 17.1 SEC (11.7-14.0) Prothromb Time International Ratio 1.4 (0.8-1.1) Laboratory Tests Test 12/02/19 11:08 12/02/19 11:45 12/02/19 12:15 12/03/19 04:30 Urine Collection Type Unknown Urine Color Red Urine Clarity Turbid Urine pH 6.0 (<5.0-8.0) Urine Specific [place] 1.015 (1.000-1.030) Urine Protein >=300 mg/dL (NEG-TRACE) Urine Glucose (UA) Negative mg/dL (NEG) Urine Ketones (Stick) Trace mg/dL (NEG) Urine Blood Large (NEG) Urine Nitrite Positive (NEG) Urine Bilirubin Negative (NEG) Urine Urobilinogen Dipstick 1.0 mg/dL (0.2 mg/dL) Urine Leukocyte Esterase Large (NEG) Urine RBC 20-40 /HPF (0-2) Urine WBC Tntc /HPF (0-4) Urine Squamous Epithelial Cells None /LPF Urine Bacteria Few /HPF (0-FEW) White Blood Count 8.4 x10^3/uL (4.0-11.0) 7.2 x10^3/uL (4.0-11.0) Red Blood Count 5.66 x10^6/uL (4.30-5.70) 4.45 x10^6/uL (4.30-5.70) Hemoglobin 17.1 g/dL (13.0-17.5) 13.4 g/dL (13.0-17.5) Hematocrit 51.3 % (39.0-53.0) 40.1 % (39.0-53.0) Mean Corpuscular Volume 91 fL (79-100) 90 fL (79-100) Mean Corpuscular Hemoglobin 30 pg (25-35) 30 pg (25-35) Mean Corpuscular Hemoglobin Concent 33 g/dL (31-37) 34 g/dL (31-37) Red Cell Distribution Width 14.1 % (11.5-14.5) 14.1 % (11.5-14.5) Platelet Count 115 x10^3/uL (140-400) 119 x10^3/uL (140-400) Neutrophils (%) (Auto) 88 % (31-73) 70 % (31-73) Lymphocytes (%) (Auto) 6 % (24-48) 18 % (24-48) Monocytes (%) (Auto) 6 % (0-9) 11 % (0-9) Eosinophils (%) (Auto) 1 % (0-3) 2 % (0-3) Basophils (%) (Auto) 0 % (0-3) 0 % (0-3) Neutrophils # (Auto) 7.4 x10^3/uL (1.8-7.7) 5.0 x10^3/uL (1.8-7.7) Lymphocytes # (Auto) 0.5 x10^3/uL (1.0-4.8) 1.3 x10^3/uL (1.0-4.8) Monocytes # (Auto) 0.5 x10^3/uL (0.0-1.1) 0.8 x10^3/uL (0.0-1.1) Eosinophils # (Auto) 0.0 x10^3/uL (0.0-0.7) 0.1 x10^3/uL (0.0-0.7) Basophils # (Auto) 0.0 x10^3/uL (0.0-0.2) 0.0 x10^3/uL (0.0-0.2) Segmented Neutrophils % 68 % (35-66) Band Neutrophils % 18 % (0-9) Lymphocytes % 7 % (24-48) Monocytes % 7 % (0-10) Toxic Granulation Slight Platelet Estimate Adequate (ADEQUATE) Platelet Clumps, EDTA Present Giant Platelets Occ Sodium Level 141 mmol/L (136-145) 140 mmol/L (136-145) Potassium Level 3.7 mmol/L (3.5-5.1) 3.1 mmol/L (3.5-5.1) Chloride Level 108 mmol/L (98-107) 109 mmol/L (98-107) Carbon Dioxide Level 23 mmol/L (21-32) 22 mmol/L (21-32) Anion Gap 10 (6-14) 9 (6-14) Blood Urea Nitrogen 15 mg/dL (8-26) 15 mg/dL (8-26) Creatinine 0.2 mg/dL (0.7-1.3) 0.2 mg/dL (0.7-1.3) Estimated GFR (Cockcroft-Gault) > 300.0 > 300.0 BUN/Creatinine Ratio 75 (6-20) Glucose Level 123 mg/dL (70-99) 68 mg/dL (70-99) Lactic Acid Level 1.6 mmol/L (0.4-2.0) Calcium Level 9.3 mg/dL (8.5-10.1) 8.7 mg/dL (8.5-10.1) Total Bilirubin 1.0 mg/dL (0.2-1.0) Aspartate Amino Transf (AST/SGOT) 18 U/L (15-37) Alanine Aminotransferase (ALT/SGPT) 21 U/L (16-63) Alkaline Phosphatase 133 U/L (46-116) Total Protein 7.8 g/dL (6.4-8.2) Albumin 3.4 g/dL (3.4-5.0) Albumin/Globulin Ratio 0.8 (1.0-1.7) Lipase 74 U/L (73-393) Prothrombin Time 17.1 SEC (11.7-14.0) Prothromb Time International Ratio 1.4 (0.8-1.1) Medications Active Scripts Medications Dose Route/Sig Max Daily Dose Days Date Category Dose Instructions Probiotic (Lactobacillus Acidophilus) 1 Each Capsule 1 Cap GT DAILY 12/02/19 Reported Senna (Sennosides) 8.8 Mg/5 Ml Syrup 8.8 Mg GT DAILY PRN 12/02/19 Reported Ketoconazole 15 Gm Cream..g. 1 Enrrique TP DAILY PRN 12/02/19 Reported Hydrocortisone 30 Gm Cream.appl 1 Enrrique TP DAILY PRN 12/02/19 Reported Nystatin 15 Gm Oint...g. 1 Enrrique TP BID PRN 12/02/19 Reported Psyllium Fiber (Psyllium Husk) 0.52 Gm Capsule 0.52 Gm GT TID PRN 12/02/19 Reported Terbinafine Hcl 30 Gm Cream..g. 30 Gm TP BID PRN 12/02/19 Reported Desitin (Zinc Oxide) 57 Gm Cream..g. 1 Enrrique TP DAILY PRN 12/02/19 Reported Clotrimazole 15 Gm Cream..g. 1 Enrrique TP BID PRN 12/02/19 Reported Tinactin (Tolnaftate) 150 Gm Rice 1 Rice TP BID PRN 10 12/02/19 Reported [Sodium Chloride 0.9%] 1 Vial INH QID 12/02/19 Reported Miralax (Polyethylene Glycol 3350) 17 Gm Powd.pack 1 Packet GT BID PRN 2 12/02/19 Reported dissolve in water Ibuprofen 100 Mg/5 Ml Oral.susp 400 Mg GT QID PRN 12/02/19 Reported Triple Antibiotic Ointment (Neomy Sulf/Bacitrac Zn/Poly) 1 Each Oint.pack 1 Each TP BID PRN 12/02/19 Reported Preparation H Ointment (Phenyleph/Mineral Oil/Petrolat) 28 Gm Oint.appl 28 Gm RC QID PRN 12/02/19 Reported [[Boric Acid]] 2 Puff AD 3X/WEEK 12/02/19 Reported Albuterol Sulfate Conc Neb Soln (Albuterol Sulfate) 2.5 Mg/0.5 Ml Vial.neb 1 Vial NEB Q6HRS 12/02/19 Reported Tylenol Cold-Flu Severe Liq (Phenylephrine/Dm/Acetaminop/Gg) 240 Ml Liquid 20-30 Ml GT Q6-8HRS PRN 12/02/19 Reported Acetaminophen Oral Liquid (Acetaminophen) 650 Mg/20.3 Ml Solution 960 Mg GT PRN Q6HRS PRN 12/02/19 Reported Generlac (Lactulose) 10 Gm/15 Ml Solution 30 Ml GT Q12HR PRN 12/02/19 Reported Esomeprazole Magnesium 40 Mg Capsule.dr 40 Mg GT DAILY 12/02/19 Reported Fluticasone Propionate Nasal Rice (Fluticasone Propionate) 16 Gm Rice.susp 2 Sprays NS DAILY PRN 12/02/19 Reported Terazosin Hcl 2 Mg Capsule 1 Cap GT DAILY 12/02/19 Reported Co Q-10 (Ubidecarenone) 200 Mg Capsule 1 Cap GT TID 12/02/19 Reported Calcium Carbonate 500 Mg/5 Ml Oral.susp 6 Ml GT DAILY 12/02/19 Reported Impression . Full consult dictated, chronic respiratory failure continue home ventilator LOCO MAGAÑA MD Dec 03, 2019 08:22
[2019-12-03] MEDS ORDERED: NON FORMULARY ITEM (Ubidecarenone (Co Q-10) 1 CAP) GT SCH (09:00)
[2019-12-03] MEDS ORDERED: PSYLLIUM HUSK (SUGAR FREE) 1 PKT PACKET GT PRN (09:00)
[2019-12-03] MEDS: ELECTROLYTE (ICU) PROTOCOL. MC SCH (09:00)
--- NOTE | 2019-12-03 10:00 | PDOC ---
PROGRESS NOTES Date of Service: DATE: 12/03/19 TIME: 09:59 Chief Complaint Chief Complaint VTE Prophylaxis Ordered VTE Prophylaxis Devices: No VTE Pharmacological Prophylaxi: Yes Assessment/Plan Assessment/Plan Pyelonephritis, acute History of MS Wheelchair-bound Thrombocytopenia Bandemia could represent early sepsis present on admission but no other markers positive for sepsis given normal lactic acid Cystitis as per CT scan MAY HAVE neurogenic bladder Findings compatible with rectal fecal impaction. Evidence of chronic neurologic disease with extensive thoracolumbar spinal dorsal fusion hardware. Fibrofatty infiltration of the distal small bowel wall, possibly reflecting previous episodes of bowel inflammation. HYPOKALEMIA 12/02 mother thinks he has difficulty with voiding , will bladder scan q shift, NEEDS DPOA REVIEW D/W RN 38 MIN PT EXAM, CHART REVIEW, > 50% OF TIME SPENT WITH EXAM, CHART REVIEW, PT CARE COORDINATION Plan Broad-spectrum antibiotics with ceftriaxone Resume supportive measures Replace electrolytes as needed Follow urinary output We will provide oral resuscitation Resume home medications once available for review DVT prophylaxis with Lovenox bladder scan protocol renal sono r/o hydronephrosis GI CONSULT DULCOLAX SUPP History of Present Illness History of Present Illness History of Present Illness History of Present Illness Patient is a 29 year old male with past medical history of muscular dystrophy, trachesotmy in place who is brought by his overnight caregiver for noticing blood in urine as per er documentation. The patient is uable to provide much details since he has a trach in place He seems acutely ill but currently in no acute distress, he is oriented in person and does nto seem to be in respiratory distress, no abdominal pain reported, he denies fever or chills but according to documentation he presented fever at home reason why he was brought to the Er for further evaluation and treatment. Patient suffers from multiple sclerosis and apparently has been wheelchair-bound for a long time now. Patient has reported had a fever last evening but he does not seem to be coughing nor having an acute chest discomfort. Patient is laying on the stretcher in no apparent distress plan of care has been explained in detail to the patient to the best of my abilities. He will be admitted for broad-spectrum antibiotic therapy and close monitoring. His laboratory data seems quite unremarkable despite having the findings on CAT scan consistent with pyelonephritis. Hopefully this is a early stages and we managed to overt complications from a generalized infection. ER history as follows: Past Medical History Past Medical History: Pneumonia, Other Additional Past Medical Histor: muscular dystrophy, trache, pneumothorax, silent aspirations, contractures Past Surgical History: Tonsillectomy, Other Additional Past Surgical Histo: trache, rods and screws in spine, right ear grafts Smoking Status: Never Smoker Alcohol Use: None Drug Use: None General Adult EDM: Chief Complaint: BLOOD IN URINE HPI: HPI: Patient is a 29 year old male who presents with 2 days of back pain and abdominal pain with pain with urination. He states that he is also been constipated but had a bowel movement yesterday. He states he also ran a fever last night. He states he does not have any abdominal pain or back pain today. He was afebrile here in the ED. He had taken some ibuprofen. Patient currently complains of no pain. Patient denies chest pain, shortness of breath, cough, nausea, vomiting, diarrhea, headache, dizziness, focal weakness. Patient is in a motorized wheelchair. He has history of MS, trach, pneumothorax, silent aspirations, contractures, rods and screws in spine, tonsillectomy, right ear grafts. Past Medical History Pulmonary: Pneumonia CENTRAL NERVOUS SYSTEM: Other (Multiple sclerosis) Past Surgical History Past Surgical History: Tonsillectomy, No pertinent history (Tracheostomy in place) Family History Family History: Family History Unknown Social History Smoke: No ALCOHOL: none Drugs: None Current Problem List Problem List Problems Medical Problems: (1) Pyelonephritis Status: Acute Current Medications Vitals Vitals Vital Signs Date Time Temp Pulse Resp B/P (MAP) Pulse Ox O2 Delivery O2 Flow Rate FiO2 12/03/19 07:00 98.6 67 22 104/61 (75) 99 Room Air 98.6 Physical Exam Physical Exam Physical Exam Physical Exam GEN.: No apparent distress. Alert and oriented to person HEENT: Head is normocephalic, atraumatic NECK: Supple. LUNGS: Clear to auscultation. HEART: RRR, S1, S2 present. Tachycardic peripheral pulses intact ABDOMEN: Soft, nontender. Distended positive bowel sounds. EXTREMITIES: Without any cyanosis. NEUROLOGIC: Cranial nerves II to XII grossly intact moves all extremities no sensory deficits PSYCHIATRIC: Unable to assess SKIN: No ulcerations General: Alert, Cooperative Heart: Regular rate Abdomen: Other (OBESE, MILD DISTENTION) Extremities: No clubbing, No cyanosis Labs LABS TECHNIQUE: Multi-detector row CT images were acquired from the lung bases through the abdomen and pelvis with the use of IV contrast. Sagittal and coronal images were acquired from the transaxial data. All CT scans performed at this facility utilize dose optimization techniques as appropriate to the exam, including the following: Automated exposure control and adjustment of the mA and/or KV according to patient size (this includes techniques or standardized protocols for targeted exams where dose is indication/reason for exam). IV CONTRAST: Administered ORAL CONTRAST: Not administered COMPARISON: None FINDINGS: LOWER CHEST: Unremarkable LIVER: Unremarkable BILIARY SYSTEM: Gallbladder is unremarkable. Bile ducts are not dilated. PANCREAS: Unremarkable SPLEEN: Unremarkable ADRENALS: Unremarkable KIDNEYS & URETERS: Unremarkable BLADDER: Marked urinary bladder distention with wall thickening REPRODUCTIVE ORGANS: Unremarkable GASTROINTESTINAL: The stomach contains a percutaneous gastrostomy tube. The small bowel is fluid-filled but not distended. Some fibrofatty infiltration of the distal small bowel loops could reflect the sequelae of previous inflammation. Colon shows mostly liquid stool except in the rectum where fecal distention with solid debris to a 5.3 cm transverse diameter is present all the way to the anorectal junction.. The appendix is normal. MESENTERY/PERITONEUM/RETROPERITONEUM: Unremarkable VASCULAR: Unremarkable LYMPH NODES: No adenopathy OSSEOUS & SOFT TISSUES: Diffuse muscular atrophy in a pattern suggesting chronic quadriplegia. Extensive raphael and pedicle screw construct spinal fusion hardware is present from the sacrum through the upper thoracic spine and beyond the included field of view. There is residual mild leftward convexity scoliotic curvature. IMPRESSION: 1. Findings suspicious for cystitis with distended urinary bladder. Consider bladder decompression. 2. Findings compatible with rectal fecal impaction. 3. Evidence of chronic neurologic disease with extensive thoracolumbar spinal dorsal fusion hardware. 4. Fibrofatty infiltration of the distal small bowel wall, possibly reflecting previous episodes of bowel inflammation. Correlate clinically. Electronically signed by: Amaury Woo MD (12/02/2019 1:01 PM) [id number] DICTATED and SIGNED BY: AMAURY WOO MD DATE: 12/02/19 1301 Laboratory Tests Test 12/02/19 11:08 12/02/19 11:45 12/02/19 12:15 12/03/19 04:30 Urine Collection Type Unknown Urine Color Red Urine Clarity Turbid Urine pH 6.0 (<5.0-8.0) Urine Specific Howell 1.015 (1.000-1.030) Urine Protein >=300 mg/dL (NEG-TRACE) Urine Glucose (UA) Negative mg/dL (NEG) Urine Ketones (Stick) Trace mg/dL (NEG) Urine Blood Large (NEG) Urine Nitrite Positive (NEG) Urine Bilirubin Negative (NEG) Urine Urobilinogen Dipstick 1.0 mg/dL (0.2 mg/dL) Urine Leukocyte Esterase Large (NEG) Urine RBC 20-40 /HPF (0-2) Urine WBC Tntc /HPF (0-4) Urine Squamous Epithelial Cells None /LPF Urine Bacteria Few /HPF (0-FEW) White Blood Count 8.4 x10^3/uL (4.0-11.0) 7.2 x10^3/uL (4.0-11.0) Red Blood Count 5.66 x10^6/uL (4.30-5.70) 4.45 x10^6/uL (4.30-5.70) Hemoglobin 17.1 g/dL (13.0-17.5) 13.4 g/dL (13.0-17.5) Hematocrit 51.3 % (39.0-53.0) 40.1 % (39.0-53.0) Mean Corpuscular Volume 91 fL (79-100) 90 fL (79-100) Mean Corpuscular Hemoglobin 30 pg (25-35) 30 pg (25-35) Mean Corpuscular Hemoglobin Concent 33 g/dL (31-37) 34 g/dL (31-37) Red Cell Distribution Width 14.1 % (11.5-14.5) 14.1 % (11.5-14.5) Platelet Count 115 x10^3/uL (140-400) 119 x10^3/uL (140-400) Neutrophils (%) (Auto) 88 % (31-73) 70 % (31-73) Lymphocytes (%) (Auto) 6 % (24-48) 18 % (24-48) Monocytes (%) (Auto) 6 % (0-9) 11 % (0-9) Eosinophils (%) (Auto) 1 % (0-3) 2 % (0-3) Basophils (%) (Auto) 0 % (0-3) 0 % (0-3) Neutrophils # (Auto) 7.4 x10^3/uL (1.8-7.7) 5.0 x10^3/uL (1.8-7.7) Lymphocytes # (Auto) 0.5 x10^3/uL (1.0-4.8) 1.3 x10^3/uL (1.0-4.8) Monocytes # (Auto) 0.5 x10^3/uL (0.0-1.1) 0.8 x10^3/uL (0.0-1.1) Eosinophils # (Auto) 0.0 x10^3/uL (0.0-0.7) 0.1 x10^3/uL (0.0-0.7) Basophils # (Auto) 0.0 x10^3/uL (0.0-0.2) 0.0 x10^3/uL (0.0-0.2) Segmented Neutrophils % 68 % (35-66) Band Neutrophils % 18 % (0-9) Lymphocytes % 7 % (24-48) Monocytes % 7 % (0-10) Toxic Granulation Slight Platelet Estimate Adequate (ADEQUATE) Platelet Clumps, EDTA Present Giant Platelets Occ Sodium Level 141 mmol/L (136-145) 140 mmol/L (136-145) Potassium Level 3.7 mmol/L (3.5-5.1) 3.1 mmol/L (3.5-5.1) Chloride Level 108 mmol/L (98-107) 109 mmol/L (98-107) Carbon Dioxide Level 23 mmol/L (21-32) 22 mmol/L (21-32) Anion Gap 10 (6-14) 9 (6-14) Blood Urea Nitrogen 15 mg/dL (8-26) 15 mg/dL (8-26) Creatinine 0.2 mg/dL (0.7-1.3) 0.2 mg/dL (0.7-1.3) Estimated GFR (Cockcroft-Gault) > 300.0 > 300.0 BUN/Creatinine Ratio 75 (6-20) Glucose Level 123 mg/dL (70-99) 68 mg/dL (70-99) Lactic Acid Level 1.6 mmol/L (0.4-2.0) Calcium Level 9.3 mg/dL (8.5-10.1) 8.7 mg/dL (8.5-10.1) Total Bilirubin 1.0 mg/dL (0.2-1.0) Aspartate Amino Transf (AST/SGOT) 18 U/L (15-37) Alanine Aminotransferase (ALT/SGPT) 21 U/L (16-63) Alkaline Phosphatase 133 U/L (46-116) Total Protein 7.8 g/dL (6.4-8.2) Albumin 3.4 g/dL (3.4-5.0) Albumin/Globulin Ratio 0.8 (1.0-1.7) Lipase 74 U/L (73-393) Prothrombin Time 17.1 SEC (11.7-14.0) Prothromb Time International Ratio 1.4 (0.8-1.1) Assessment and Plan Assessmemt and Plan Problems Medical Problems: (1) Pyelonephritis Status: Acute Comment Review of Relevant I have reviewed the following items moses (where applicable) has been applied. Labs Laboratory Tests Test 12/02/19 11:08 12/02/19 11:45 12/02/19 12:15 12/03/19 04:30 Urine Collection Type Unknown Urine Color Red Urine Clarity Turbid Urine pH 6.0 (<5.0-8.0) Urine Specific Howell 1.015 (1.000-1.030) Urine Protein >=300 mg/dL (NEG-TRACE) Urine Glucose (UA) Negative mg/dL (NEG) Urine Ketones (Stick) Trace mg/dL (NEG) Urine Blood Large (NEG) Urine Nitrite Positive (NEG) Urine Bilirubin Negative (NEG) Urine Urobilinogen Dipstick 1.0 mg/dL (0.2 mg/dL) Urine Leukocyte Esterase Large (NEG) Urine RBC 20-40 /HPF (0-2) Urine WBC Tntc /HPF (0-4) Urine Squamous Epithelial Cells None /LPF Urine Bacteria Few /HPF (0-FEW) White Blood Count 8.4 x10^3/uL (4.0-11.0) 7.2 x10^3/uL (4.0-11.0) Red Blood Count 5.66 x10^6/uL (4.30-5.70) 4.45 x10^6/uL (4.30-5.70) Hemoglobin 17.1 g/dL (13.0-17.5) 13.4 g/dL (13.0-17.5) Hematocrit 51.3 % (39.0-53.0) 40.1 % (39.0-53.0) Mean Corpuscular Volume 91 fL (79-100) 90 fL (79-100) Mean Corpuscular Hemoglobin 30 pg (25-35) 30 pg (25-35) Mean Corpuscular Hemoglobin Concent 33 g/dL (31-37) 34 g/dL (31-37) Red Cell Distribution Width 14.1 % (11.5-14.5) 14.1 % (11.5-14.5) Platelet Count 115 x10^3/uL (140-400) 119 x10^3/uL (140-400) Neutrophils (%) (Auto) 88 % (31-73) 70 % (31-73) Lymphocytes (%) (Auto) 6 % (24-48) 18 % (24-48) Monocytes (%) (Auto) 6 % (0-9) 11 % (0-9) Eosinophils (%) (Auto) 1 % (0-3) 2 % (0-3) Basophils (%) (Auto) 0 % (0-3) 0 % (0-3) Neutrophils # (Auto) 7.4 x10^3/uL (1.8-7.7) 5.0 x10^3/uL (1.8-7.7) Lymphocytes # (Auto) 0.5 x10^3/uL (1.0-4.8) 1.3 x10^3/uL (1.0-4.8) Monocytes # (Auto) 0.5 x10^3/uL (0.0-1.1) 0.8 x10^3/uL (0.0-1.1) Eosinophils # (Auto) 0.0 x10^3/uL (0.0-0.7) 0.1 x10^3/uL (0.0-0.7) Basophils # (Auto) 0.0 x10^3/uL (0.0-0.2) 0.0 x10^3/uL (0.0-0.2) Segmented Neutrophils % 68 % (35-66) Band Neutrophils % 18 % (0-9) Lymphocytes % 7 % (24-48) Monocytes % 7 % (0-10) Toxic Granulation Slight Platelet Estimate Adequate (ADEQUATE) Platelet Clumps, EDTA Present Giant Platelets Occ Sodium Level 141 mmol/L (136-145) 140 mmol/L (136-145) Potassium Level 3.7 mmol/L (3.5-5.1) 3.1 mmol/L (3.5-5.1) Chloride Level 108 mmol/L (98-107) 109 mmol/L (98-107) Carbon Dioxide Level 23 mmol/L (21-32) 22 mmol/L (21-32) Anion Gap 10 (6-14) 9 (6-14) Blood Urea Nitrogen 15 mg/dL (8-26) 15 mg/dL (8-26) Creatinine 0.2 mg/dL (0.7-1.3) 0.2 mg/dL (0.7-1.3) Estimated GFR (Cockcroft-Gault) > 300.0 > 300.0 BUN/Creatinine Ratio 75 (6-20) Glucose Level 123 mg/dL (70-99) 68 mg/dL (70-99) Lactic Acid Level 1.6 mmol/L (0.4-2.0) Calcium Level 9.3 mg/dL (8.5-10.1) 8.7 mg/dL (8.5-10.1) Total Bilirubin 1.0 mg/dL (0.2-1.0) Aspartate Amino Transf (AST/SGOT) 18 U/L (15-37) Alanine Aminotransferase (ALT/SGPT) 21 U/L (16-63) Alkaline Phosphatase 133 U/L (46-116) Total Protein 7.8 g/dL (6.4-8.2) Albumin 3.4 g/dL (3.4-5.0) Albumin/Globulin Ratio 0.8 (1.0-1.7) Lipase 74 U/L (73-393) Prothrombin Time 17.1 SEC (11.7-14.0) Prothromb Time International Ratio 1.4 (0.8-1.1) Laboratory Tests Test 12/02/19 11:08 12/02/19 11:45 12/02/19 12:15 12/03/19 04:30 Urine Collection Type Unknown Urine Color Red Urine Clarity Turbid Urine pH 6.0 (<5.0-8.0) Urine Specific Howell 1.015 (1.000-1.030) Urine Protein >=300 mg/dL (NEG-TRACE) Urine Glucose (UA) Negative mg/dL (NEG) Urine Ketones (Stick) Trace mg/dL (NEG) Urine Blood Large (NEG) Urine Nitrite Positive (NEG) Urine Bilirubin Negative (NEG) Urine Urobilinogen Dipstick 1.0 mg/dL (0.2 mg/dL) Urine Leukocyte Esterase Large (NEG) Urine RBC 20-40 /HPF (0-2) Urine WBC Tntc /HPF (0-4) Urine Squamous Epithelial Cells None /LPF Urine Bacteria Few /HPF (0-FEW) White Blood Count 8.4 x10^3/uL (4.0-11.0) 7.2 x10^3/uL (4.0-11.0) Red Blood Count 5.66 x10^6/uL (4.30-5.70) 4.45 x10^6/uL (4.30-5.70) Hemoglobin 17.1 g/dL (13.0-17.5) 13.4 g/dL (13.0-17.5) Hematocrit 51.3 % (39.0-53.0) 40.1 % (39.0-53.0) Mean Corpuscular Volume 91 fL (79-100) 90 fL (79-100) Mean Corpuscular Hemoglobin 30 pg (25-35) 30 pg (25-35) Mean Corpuscular Hemoglobin Concent 33 g/dL (31-37) 34 g/dL (31-37) Red Cell Distribution Width 14.1 % (11.5-14.5) 14.1 % (11.5-14.5) Platelet Count 115 x10^3/uL (140-400) 119 x10^3/uL (140-400) Neutrophils (%) (Auto) 88 % (31-73) 70 % (31-73) Lymphocytes (%) (Auto) 6 % (24-48) 18 % (24-48) Monocytes (%) (Auto) 6 % (0-9) 11 % (0-9) Eosinophils (%) (Auto) 1 % (0-3) 2 % (0-3) Basophils (%) (Auto) 0 % (0-3) 0 % (0-3) Neutrophils # (Auto) 7.4 x10^3/uL (1.8-7.7) 5.0 x10^3/uL (1.8-7.7) Lymphocytes # (Auto) 0.5 x10^3/uL (1.0-4.8) 1.3 x10^3/uL (1.0-4.8) Monocytes # (Auto) 0.5 x10^3/uL (0.0-1.1) 0.8 x10^3/uL (0.0-1.1) Eosinophils # (Auto) 0.0 x10^3/uL (0.0-0.7) 0.1 x10^3/uL (0.0-0.7) Basophils # (Auto) 0.0 x10^3/uL (0.0-0.2) 0.0 x10^3/uL (0.0-0.2) Segmented Neutrophils % 68 % (35-66) Band Neutrophils % 18 % (0-9) Lymphocytes % 7 % (24-48) Monocytes % 7 % (0-10) Toxic Granulation Slight Platelet Estimate Adequate (ADEQUATE) Platelet Clumps, EDTA Present Giant Platelets Occ Sodium Level 141 mmol/L (136-145) 140 mmol/L (136-145) Potassium Level 3.7 mmol/L (3.5-5.1) 3.1 mmol/L (3.5-5.1) Chloride Level 108 mmol/L (98-107) 109 mmol/L (98-107) Carbon Dioxide Level 23 mmol/L (21-32) 22 mmol/L (21-32) Anion Gap 10 (6-14) 9 (6-14) Blood Urea Nitrogen 15 mg/dL (8-26) 15 mg/dL (8-26) Creatinine 0.2 mg/dL (0.7-1.3) 0.2 mg/dL (0.7-1.3) Estimated GFR (Cockcroft-Gault) > 300.0 > 300.0 BUN/Creatinine Ratio 75 (6-20) Glucose Level 123 mg/dL (70-99) 68 mg/dL (70-99) Lactic Acid Level 1.6 mmol/L (0.4-2.0) Calcium Level 9.3 mg/dL (8.5-10.1) 8.7 mg/dL (8.5-10.1) Total Bilirubin 1.0 mg/dL (0.2-1.0) Aspartate Amino Transf (AST/SGOT) 18 U/L (15-37) Alanine Aminotransferase (ALT/SGPT) 21 U/L (16-63) Alkaline Phosphatase 133 U/L (46-116) Total Protein 7.8 g/dL (6.4-8.2) Albumin 3.4 g/dL (3.4-5.0) Albumin/Globulin Ratio 0.8 (1.0-1.7) Lipase 74 U/L (73-393) Prothrombin Time 17.1 SEC (11.7-14.0) Prothromb Time International Ratio 1.4 (0.8-1.1) Medications Current Medications Sodium Chloride 1,000 ml @ 1,000 mls/hr Q1H IV Last administered on 12/02/19at 12:07; Start 12/02/19 at 11:12; Stop 12/02/19 at 12:11; Status DC Ciprofloxacin/ Dextrose 200 ml @ 200 mls/hr 1X ONCE IV Last administered on 12/02/19at 12:08; Start 12/02/19 at 11:30; Stop 12/02/19 at 12:29; Status DC Iohexol (Omnipaque 300 Mg/ml) 75 ml 1X ONCE IV Last administered on 12/02/19at 12:46; Start 12/02/19 at 12:30; Stop 12/02/19 at 12:31; Status DC Info (CONTRAST GIVEN -- Rx MONITORING) 1 each PRN DAILY PRN MC SEE COMMENTS; Start 12/02/19 at 12:30; Stop 12/04/19 at 12:29 Sodium Chloride 1,000 ml @ 1,000 mls/hr 1X ONCE IV ; Start 12/02/19 at 13:00; Stop 12/02/19 at 13:59; Status DC Sodium Monofluorophosphate (Fleet Adult) 133 ml 1X ONCE AK ; Start 12/02/19 at 13:15; Stop 12/02/19 at 13:16; Status DC Polyethylene Glycol (miraLAX PACKET) 17 gm 1X ONCE PO Last administered on 12/02/19at 14:45; Start 12/02/19 at 14:45; Stop 12/02/19 at 14:46; Status DC Acetaminophen (Tylenol) 650 mg PRN Q6HRS PRN PO Headaches, Temp > 101.5'; Start 12/02/19 at 15:30; Status Cancel Lorazepam (Ativan Inj) 0.5 mg PRN Q6HRS PRN IVP ANXIETY / AGITATION; Start 12/02/19 at 15:30 Ondansetron HCl (Zofran) 4 mg PRN Q6HRS PRN IVP NAUSEA/VOMITING; Start 12/02/19 at 15:30 Famotidine (Pepcid) 20 mg BID PO Last administered on 12/02/19at 21:18; Start 12/02/19 at 21:00 Zolpidem Tartrate (Ambien) 5 mg PRN QHS PRN PO INSOMNIA, MAY REPEAT IN 1HR; St art 12/02/19 at 15:30 Info (Icu Electrolyte Protocol) 1 ea DAILY MC ; Start 12/03/19 at 09:00 Enoxaparin Sodium (Lovenox 40mg Syringe) 40 mg Q24H SQ ; Start 12/02/19 at 21:00 Sodium Chloride (Normal Saline Flush) 3 ml QSHIFT PRN IV AFTER MEDS AND BLOOD DRAWS; Start 12/02/19 at 15:30 Acetaminophen/ Hydrocodone Bitart (Lortab 5/325) 1 tab PRN Q4HRS PRN PO MODERATE PAIN; Start 12/02/19 at 15:30 Oxycodone/ Acetaminophen (Percocet 5/325) 1 tab PRN Q4HRS PRN PO SEVERE PAIN; Start 12/02/19 at 15:30 Morphine Sulfate (Morphine Sulfate) 2 mg PRN Q1HR PRN IV PAIN; Start 12/02/19 at 15:30 Senna/Docusate Sodium (Senna Plus) 1 tab BID PO Last administered on 12/02/19at 21:18; Start 12/02/19 at 21:00 Lactulose (Lactulose) 20 gm PRN Q12HR PRN PO CONSTIPATION; Start 12/02/19 at 15:30; Stop 12/03/19 at 00:07; Status DC Ceftriaxone Sodium (Rocephin) 1 gm Q24H IVP Last administered on 12/02/19at 21:19; Start 12/02/19 at 17:00 Albuterol Sulfate (Ventolin Neb Soln) 5 mg Q6H NEB Last administered on 12/03/19at 06:24; Start 12/02/19 at 18:00 Ibuprofen (Children'S Motrin) 400 mg PRN QID PRN GT INFLAMMATION Last administered on 12/02/19at 22:57; Start 12/02/19 at 22:15 Terazosin HCl (Hytrin) 2 mg DAILY PO ; Start 12/03/19 at 09:00 Polyethylene Glycol (miraLAX PACKET) 17 gm PRN BID PRN PO CONSTIPATION Last administered on 12/02/19at 22:57; Start 12/02/19 at 22:15 Terazosin HCl (Hytrin) 1 mg 1X ONCE PO Last administered on 12/02/19at 22:58; Start 12/02/19 at 22:30; Stop 12/02/19 at 22:31; Status DC Acetaminophen (Tylenol) 960 mg PRN Q6HRS PRN GT MILD PAIN / TEMP > 100.3'F; Start 12/02/19 at 23:45 Clotrimazole (Lotrimin) 1 enrrique PRN BID PRN TP FUNGAL INFECTION; Start 12/02/19 at 23:45 Fluticasone Propionate (Flonase) 2 spray PRN DAILY PRN NS ALLERGIES; Start 12/02/19 at 23:45 Hydrocortisone (Cortaid) 1 enrrique PRN DAILY PRN TP ITCHING; Start 12/03/19 at 00:30 Ketoconazole (Nizoral 2% Topical) 1 enrrique PRN DAILY PRN TP SKIN IRRITATION; Start 12/02/19 at 23:45 Neomycin/ Polymyxin/ Bacitracin (Triple Antibiotic Ointment) 1 pkt PRN BID PRN TP ABRASIONS; Start 12/02/19 at 23:45 Nystatin (Mycostatin) 1 enrrique PRN BID PRN TP RASH; Start 12/02/19 at 23:45 Calcium Carbonate/ Glycine (Tums) 500 mg DAILY GT ; Start 12/03/19 at 09:00 Lansoprazole (Prevacid) 30 mg BIDBFRMEAL GT ; Start 12/03/19 at 07:30 Lactobacillus Rhamnosus (Culturelle) 1 cap BID PO ; Start 12/03/19 at 09:00 Lactulose (Lactulose) 20 gm PRN Q12HRS PRN PO CONSTIPATION; Start 12/02/19 at 23:45; Stop 12/03/19 at 00:19; Status DC Guaifenesin (Robitussin Dm) 10 ml PRN Q6HRS PRN PEG COUGH; Start 12/03/19 at 00:30 Psyllium Hydrophilic Mucilloid (Metamucil Fiber Packet) 1 pkt PRN DAILY PRN GT CONSTIPATIN; Start 12/03/19 at 09:00 Non-Formulary Medication (Terbinafine Hcl ) 30 gm BID PRN TP FUNGAL TOE INFECTION; Start 12/02/19 at 23:45; Status UNV Tolnaftate (Tinactin) 1 enrrique PRN BID PRN TP ATHLETE'S FOOT; Start 12/03/19 at 00:15 Non-Formulary Medication (Ubidecarenone (Co Q-10)) 1 cap TID GT ; Start 12/03/19 at 09:00; Status UNV Zinc Oxide (Zinc Oxide 20% Topical) 1 enrrique PRN DAILY PRN TP TO STOMA; Start 12/03/19 at 00:15 Lactulose (Lactulose) 20 gm PRN Q12HRS PRN PO CONSTIPATION; Start 12/03/19 at 00:19 Active Scripts Active Reported Probiotic (Lactobacillus Acidophilus) 1 Each Capsule 1 Cap GT DAILY Senna (Sennosides) 8.8 Mg/5 Ml Syrup 8.8 Mg GT DAILY PRN Ketoconazole 15 Gm Cream..g. 1 Enrrique TP DAILY PRN Hydrocortisone 30 Gm Cream.appl 1 Enrrique TP DAILY PRN Nystatin 15 Gm Oint...g. 1 Enrrique TP BID PRN Psyllium Fiber (Psyllium Husk) 0.52 Gm Capsule 0.52 Gm GT TID PRN Terbinafine Hcl 30 Gm Cream..g. 30 Gm TP BID PRN Desitin (Zinc Oxide) 57 Gm Cream..g. 1 Enrrique TP DAILY PRN Clotrimazole 15 Gm Cream..g. 1 Enrrique TP BID PRN Tinactin (Tolnaftate) 150 Gm Bearden 1 Bearden TP BID PRN 10 Days [Sodium Chloride 0.9%] 1 Vial INH QID Miralax (Polyethylene Glycol 3350) 17 Gm Powd.pack 1 Packet GT BID PRN 2 Days dissolve in water Ibuprofen 100 Mg/5 Ml Oral.susp 400 Mg GT QID PRN Triple Antibiotic Ointment (Neomy Sulf/Bacitrac Zn/Poly) 1 Each Oint.pack 1 Each TP BID PRN Preparation H Ointment (Phenyleph/Mineral Oil/Petrolat) 28 Gm Oint.appl 28 Gm RC QID PRN [[Boric Acid]] 2 Puff AD 3X/WEEK Albuterol Sulfate Conc Neb Soln (Albuterol Sulfate) 2.5 Mg/0.5 Ml Vial.neb 1 Vial NEB Q6HRS Tylenol Cold-Flu Severe Liq (Phenylephrine/Dm/Acetaminop/Gg) 240 Ml Liquid 20-30 Ml GT Q6-8HRS PRN Acetaminophen Oral Liquid (Acetaminophen) 650 Mg/20.3 Ml Solution 960 Mg GT PRN Q6HRS PRN Generlac (Lactulose) 10 Gm/15 Ml Solution 30 Ml GT Q12HR PRN Esomeprazole Magnesium 40 Mg Capsule.dr 40 Mg GT DAILY Fluticasone Propionate Nasal Bearden (Fluticasone Propionate) 16 Gm Bearden.susp 2 Sprays NS DAILY PRN Terazosin Hcl 2 Mg Capsule 1 Cap GT DAILY Co Q-10 (Ubidecarenone) 200 Mg Capsule 1 Cap GT TID Calcium Carbonate 500 Mg/5 Ml Oral.susp 6 Ml GT DAILY Vitals/I & O Vital Sign - Last 24 Hours 12/02/19 12/02/19 12/02/19 12/02/19 11:13 12:15 13:15 14:15 Temp 98.3 98.3 Pulse 120 122 120 120 Resp 18 19 19 19 B/P (MAP) 128/80 (96) 123/88 (100) 126/84 (98) 113/77 (89) Pulse Ox 97 96 96 98 O2 Delivery Room Air Room Air Room Air Room Air 12/02/19 12/02/19 12/02/19 12/02/19 15:15 16:15 17:15 19:00 Temp 99.8 99.8 Pulse 126 118 116 124 Resp 18 18 18 20 B/P (MAP) 122/78 (93) 132/85 (101) 134/88 (103) 132/93 (106) Pulse Ox 97 95 96 92 O2 Delivery Room Air Room Air Room Air Room Air 12/02/19 12/02/19 12/02/19 12/02/19 20:05 20:19 22:49 22:58 Temp 99.3 99.3 Pulse 97 97 Resp 23 B/P (MAP) 104/60 (75) 104/60 Pulse Ox 99 96 O2 Delivery Mechanical Ventilator Room Air 12/02/19 12/03/19 12/03/19 12/03/19 23:18 02:25 06:24 07:00 Temp 99.2 98.6 99.2 98.6 Pulse 94 67 Resp 23 22 B/P (MAP) 96/54 (68) 104/61 (75) Pulse Ox 98 97 98 99 O2 Delivery Room Air Room Air Intake and Output 12/02/19 12/02/19 12/03/19 15:00 23:00 07:00 Intake Total 500 ml 400 ml Output Total 200 ml Balance 300 ml 400 ml Justicifation of Admission Dx: Justifications for Admission: Justification of Admission Dx: Yes Sepsis: Dehydration Comments: FECAL IMPACTION, URINE RETENTION, PYELONEPHRITIS LITO ALEJO MD Dec 03, 2019 10:00
[2019-12-03] MEDS: FAMOTIDINE 20 MG TABLET. PO SCH ×2 (10:23→21:23)
[2019-12-03] MEDS: SENNOSIDES/DOCUSATE 8.6/50MG TABLET. PO SCH ×2 (10:23→21:00)
[2019-12-03] MEDS: LACTOBACILLUS RHAMNOSUS GG 1 CAPSULE. PO SCH ×2 (10:24→21:23)
[2019-12-03] MEDS: CALCIUM CARBONATE 500 MG TAB.CHEW GT SCH (10:26)
[2019-12-03] MEDS: LANSOPRAZOLE 30 MG TAB.RAP.DR GT SCH ×2 (10:27→18:12)
[2019-12-03] MEDS: guaiFENesin DM 200MG/20MG 10 ML SYRUP PEG PRN ×2 (10:29→18:26)
[2019-12-03] MEDS ORDERED: POTASSIUM BICARB 10 MEQ EFFERVESCENT TABLET. PEG ONE (10:30)
[2019-12-03 10:57] VITALS: BP 112/72
[2019-12-03] MEDS ORDERED: BISACODYL 10 MG SUPP.RECT. PR PRN (11:15)
--- NOTE | 2019-12-03 11:23 | CONS ---
DATE OF CONSULTATION: 12/03/2019 ATTENDING PHYSICIAN: Dr. Phillips. REASON FOR CONSULTATION: The patient is seen in pulmonary consultation at the request of Dr. Phillips for management of chronic respiratory failure, status post tracheotomy along with the use of home ventilator. HISTORY OF PRESENT ILLNESS: The patient is a 29-year-old with a history of muscular dystrophy, status post tracheotomy. Normally he is at home on [place] each day at bedtime and [place] valve during the day. The patient presented with fever. No increasing shortness of breath. No increasing cough. Chest x-ray was reviewed, no apparent infiltrates. CT chest though is consistent with pyelonephritis. The patient was admitted and treated for the above. I was asked to manage his respiratory status. Upon my evaluation, the patient was awake, alert, following command. No respiratory distress. He was on his home vent. He states he was able to nod yes to questions. He has been on the ventilator for well over a year. He is in a wheelchair and gets around in a wheelchair. He does not take in anything by mouth. PAST MEDICAL HISTORY: Muscular dystrophy, status post tracheotomy on chronic vent, status post PEG tube placement. He has had previous pneumonia, status post tonsillectomy. He has had rods and screws in the spine. SOCIAL HISTORY: He has never smoked. REVIEW OF SYSTEMS: Unobtainable secondary to the patient's condition. ALLERGIES: LISTED TO SULFA, AMOXICILLIN, CLINDAMYCIN AND VANCOMYCIN. PHYSICAL EXAMINATION: GENERAL: The patient appeared to be his stated age. VITAL SIGNS: Since admission, he has been afebrile, O2 saturation currently on a vent of 99%. HEENT: Eyes: The sclerae were nonicteric. NECK: Jugular venous distention could not be assessed. CHEST: Anteriorly was clear. CARDIOVASCULAR: Regular rate and rhythm with S1, S2; no S3. ABDOMEN: Soft. EXTREMITIES: No clubbing, cyanosis or edema. There was evidence of some contractures. LABORATORY DATA: White count was normal. Hemoglobin and hematocrit were normal. INR was 1.4. Electrolytes were noted. Potassium was low. IMPRESSION: 1. Chronic respiratory failure secondary to muscular dystrophy, status post tracheotomy. 2. Acute pyelonephritis. 3. Thrombocytopenia. 4. Hyponatremia. 5. Hypokalemia. PLAN: 1. Continue home ventilation. 2. Antibiotics per PCP. 3. Continue support. 4. Replace potassium. I do appreciate the privilege in sharing in the patient's care. LOCO MAGAÑA MD DR: SARAI/nimisha JOB#: [id number] / [id number]
--- NOTE | 2019-12-03 11:40 | RAD ---
EXAM: Renal sonogram. HISTORY: Polynephritis. TECHNIQUE: Sonographic imaging of the kidneys and bladder was performed. COMPARISON: CT dated 12/02/2019. FINDINGS: The kidneys are normal in size. No solid or cystic renal lesion is seen. There is no hydronephrosis. The urinary bladder is unremarkable. IMPRESSION: Sonographically unremarkable kidneys. Electronically signed by: Katty Fabian MD (12/03/2019 11:37 AM) [id number]
[2019-12-03] MEDS: TERAZOSIN 1 MG CAPSULE. PO SCH (12:02)
[2019-12-03] MEDS ORDERED: MINERAL OIL 133 ML ENEMA. PR ONE (13:00)
[2019-12-03 15:00] VITALS: BP 144/85
[2019-12-03] MEDS: cefTRIAXone IV Push 1 GM VIAL. IVP SCH (18:11)
[2019-12-03 19:34] VITALS: BP 97/64
[2019-12-03] MEDS: ENOXAPARIN 40 MG/0.4 ML SYRINGE. SQ SCH (21:00)
[2019-12-03] MEDS: IBUPROFEN 100 MG/5 ML ORAL.SUSP. GT PRN (21:24)
[2019-12-03 22:49] VITALS: BP 80/45
[2019-12-04] VITALS (7 sets, daily range): BP systolic 87–157; BP diastolic 49–81
[2019-12-04] MEDS: ALBUTEROL SULFATE 2.5 MG/3 ML NEBU. NEB SCH ×3 (05:58→20:29)
[2019-12-04] MEDS: LANSOPRAZOLE 30 MG TAB.RAP.DR GT SCH ×2 (07:30→16:02)
[2019-12-04] MEDS: SENNOSIDES/DOCUSATE 8.6/50MG TABLET. PO SCH ×2 (09:00→21:00)
[2019-12-04] MEDS: ELECTROLYTE (ICU) PROTOCOL. MC SCH (09:00)
[2019-12-04] MEDS: guaiFENesin DM 200MG/20MG 10 ML SYRUP PEG PRN ×3 (09:43→21:41)
[2019-12-04] MEDS: CALCIUM CARBONATE 500 MG TAB.CHEW GT SCH (09:44)
[2019-12-04] MEDS: FAMOTIDINE 20 MG TABLET. PO SCH ×2 (09:44→21:40)
[2019-12-04] MEDS: TERAZOSIN 1 MG CAPSULE. PO SCH (09:44)
[2019-12-04] MEDS: LACTOBACILLUS RHAMNOSUS GG 1 CAPSULE. PO SCH ×2 (09:44→21:40)
--- NOTE | 2019-12-04 09:48 | PDOC2 ---
CONSULT Date of Consult Date of Consult DATE: 12/04/19 TIME: 09:47 Reason for Consult Reason for Consult: Fecal impaction on CT scan History of Present Illness Reason for Visit: This is a 29-year-old gentleman with a history of muscular dystrophy, with a trach. Wheelchair-bound. He describes occasional constipation for which he uses MiraLAX but is not on a specific bowel or rectal disimpaction program since he does not have a history of previous rectal impaction. However over the last day or so he is noticed a fever and was found to have a urinary infection and has had some change in bowel function with alternating constipation and loose stool. Initial CT scan revealed a large fecal impaction. He is not ever had to have an enema or other such treatment according to the patient. He denies nausea, vomiting, bleeding. Past Medical History Pulmonary: Pneumonia CENTRAL NERVOUS SYSTEM: Other (Multiple sclerosis) Musculoskeletal: Other (Muscular dystrophy) Past Surgical History Past Surgical History: Tonsillectomy, Other (Tracheostomy), No pertinent history (Tracheostomy in place) Family History Family History: Family History Unknown Social History No ALCOHOL: none Drugs: None Current Problem List Problem List Problems Medical Problems: (1) Pyelonephritis Status: Acute Current Medications Current Medications Current Medications Sodium Chloride 1,000 ml @ 1,000 mls/hr Q1H IV Last administered on 12/02/19at 12:07; Start 12/02/19 at 11:12; Stop 12/02/19 at 12:11; Status DC Ciprofloxacin/ Dextrose 200 ml @ 200 mls/hr 1X ONCE IV Last administered on 12/02/19at 12:08; Start 12/02/19 at 11:30; Stop 12/02/19 at 12:29; Status DC Iohexol (Omnipaque 300 Mg/ml) 75 ml 1X ONCE IV Last administered on 12/02/19at 12:46; Start 12/02/19 at 12:30; Stop 12/02/19 at 12:31; Status DC Info (CONTRAST GIVEN -- Rx MONITORING) 1 each PRN DAILY PRN MC SEE COMMENTS; Start 12/02/19 at 12:30; Stop 12/04/19 at 12:29 Sodium Chloride 1,000 ml @ 1,000 mls/hr 1X ONCE IV ; Start 12/02/19 at 13:00; Stop 10/9/20 at 13:59; Status DC Sodium Monofluorophosphate (Fleet Adult) 133 ml 1X ONCE FL ; Start 12/02/19 at 13:15; Stop 12/02/19 at 13:16; Status DC Polyethylene Glycol (miraLAX PACKET) 17 gm 1X ONCE PO Last administered on 12/02/19at 14:45; Start 12/02/19 at 14:45; Stop 12/02/19 at 14:46; Status DC Acetaminophen (Tylenol) 650 mg PRN Q6HRS PRN PO Headaches, Temp > 101.5'; Start 12/02/19 at 15:30; Status Cancel Lorazepam (Ativan Inj) 0.5 mg PRN Q6HRS PRN IVP ANXIETY / AGITATION; Start 12/02/19 at 15:30 Ondansetron HCl (Zofran) 4 mg PRN Q6HRS PRN IVP NAUSEA/VOMITING; Start 12/02/19 at 15:30 Famotidine (Pepcid) 20 mg BID PO Last administered on 12/03/19at 21:23; Start 12/02/19 at 21:00 Zolpidem Tartrate (Ambien) 5 mg PRN QHS PRN PO INSOMNIA, MAY REPEAT IN 1HR; Start 12/02/19 at 15:30 Info (Icu Electrolyte Protocol) 1 ea DAILY MC ; Start 12/03/19 at 09:00 Enoxaparin Sodium (Lovenox 40mg Syringe) 40 mg Q24H SQ ; Start 12/02/19 at 21:00 Sodium Chloride (Normal Saline Flush) 3 ml QSHIFT PRN IV AFTER MEDS AND BLOOD DRAWS; Start 12/02/19 at 15:30 Acetaminophen/ Hydrocodone Bitart (Lortab 5/325) 1 tab PRN Q4HRS PRN PO MODERATE PAIN; Start 12/02/19 at 15:30 Oxycodone/ Acetaminophen (Percocet 5/325) 1 tab PRN Q4HRS PRN PO SEVERE PAIN; Start 12/02/19 at 15:30 Morphine Sulfate (Morphine Sulfate) 2 mg PRN Q1HR PRN IV PAIN; Start 12/02/19 at 15:30 Senna/Docusate Sodium (Senna Plus) 1 tab BID PO Last administered on 12/03/19at 10:23; Start 12/02/19 at 21:00 Lactulose (Lactulose) 20 gm PRN Q12HR PRN PO CONSTIPATION; Start 12/02/19 at 15:30; Stop 12/03/19 at 00:07; Status DC Ceftriaxone Sodium (Rocephin) 1 gm Q24H IVP Last administered on 12/03/19at 18:11; Start 12/02/19 at 17:00 Albuterol Sulfate (Ventolin Neb Soln) 5 mg Q6H NEB Last administered on 12/04/19at 05:58; Start 12/02/19 at 18:00 Ibuprofen (Children'S Motrin) 400 mg PRN QID PRN GT INFLAMMATION Last administered on 12/03/19at 21:24; Start 12/02/19 at 22:15 Terazosin HCl (Hytrin) 2 mg DAILY PO Last administered on 12/03/19at 12:02; Start 12/03/19 at 09:00 Polyethylene Glycol (miraLAX PACKET) 17 gm PRN BID PRN PO CONSTIPATION Last administered on 12/02/19at 22:57; Start 12/02/19 at 22:15 Terazosin HCl (Hytrin) 1 mg 1X ONCE PO Last administered on 12/02/19at 22:58; Start 12/02/19 at 22:30; Stop 12/02/19 at 22:31; Status DC Acetaminophen (Tylenol) 960 mg PRN Q6HRS PRN GT MILD PAIN / TEMP > 100.3'F; Start 12/02/19 at 23:45 Clotrimazole (Lotrimin) 1 enrrique PRN BID PRN TP FUNGAL INFECTION; Start 12/02/19 at 23:45 Fluticasone Propionate (Flonase) 2 spray PRN DAILY PRN NS ALLERGIES; Start 12/02/19 at 23:45 Hydrocortisone (Cortaid) 1 enrrique PRN DAILY PRN TP ITCHING; Start 12/03/19 at 00:30 Ketoconazole (Nizoral 2% Topical) 1 enrrique PRN DAILY PRN TP SKIN IRRITATION; Start 12/02/19 at 23:45 Neomycin/ Polymyxin/ Bacitracin (Triple Antibiotic Ointment) 1 pkt PRN BID PRN TP ABRASIONS; Start 12/02/19 at 23:45 Nystatin (Mycostatin) 1 enrrique PRN BID PRN TP RASH; Start 12/02/19 at 23:45 Calcium Carbonate/ Glycine (Tums) 500 mg DAILY GT Last administered on 12/03/19at 10:26; Start 12/03/19 at 09:00 Lansoprazole (Prevacid) 30 mg BIDBFRMEAL GT Last administered on 12/03/19at 18:12; Start 12/03/19 at 07:30 Lactobacillus Rhamnosus (Culturelle) 1 cap BID PO Last administered on 12/03/19at 21:23; Start 12/03/19 at 09:00 Lactulose (Lactulose) 20 gm PRN Q12HRS PRN PO CONSTIPATION; Start 12/02/19 at 23:45; Stop 12/03/19 at 00:19; Status DC Guaifenesin (Robitussin Dm) 10 ml PRN Q6HRS PRN PEG COUGH Last administered on 12/03/19at 18:26; Start 12/03/19 at 00:30 Psyllium Hydrophilic Mucilloid (Metamucil Fiber Packet) 1 pkt PRN DAILY PRN GT CONSTIPATIN; Start 12/03/19 at 09:00 Non-Formulary Medication (Terbinafine Hcl ) 30 gm BID PRN TP FUNGAL TOE INFECTION; Start 12/02/19 at 23:45; Status UNV Tolnaftate (Tinactin) 1 enrrique PRN BID PRN TP ATHLETE'S FOOT; Start 12/03/19 at 00:15 Non-Formulary Medication (Ubidecarenone (Co Q-10)) 1 cap TID GT ; Start 12/03/19 at 09:00; Status UNV Zinc Oxide (Zinc Oxide 20% Topical) 1 enrrique PRN DAILY PRN TP TO STOMA; Start 12/03/19 at 00:15 Lactulose (Lactulose) 20 gm PRN Q12HRS PRN PO CONSTIPATION; Start 12/03/19 at 00:19 Potassium Bicarbonate (Potassium Effervescent Tablet) 40 meq 1X ONCE PEG Last administered on 12/03/19at 10:26; Start 12/03/19 at 10:30; Stop 12/03/19 at 10:31; Status DC Bisacodyl (Dulcolax Supp) 10 mg PRN DAILY PRN FL CONSTIPATION; Start 12/03/19 at 11:15 Mineral Oil (Fleet Mineral Oil) 133 ml 1X ONCE FL ; Start 12/03/19 at 13:00; Stop 12/03/19 at 13:01; Status DC Active Scripts Active Reported Probiotic (Lactobacillus Acidophilus) 1 Each Capsule 1 Cap GT DAILY Senna (Sennosides) 8.8 Mg/5 Ml Syrup 8.8 Mg GT DAILY PRN Ketoconazole 15 Gm Cream..g. 1 Enrrique TP DAILY PRN Hydrocortisone 30 Gm Cream.appl 1 Enrrique TP DAILY PRN Nystatin 15 Gm Oint...g. 1 Enrrique TP BID PRN Psyllium Fiber (Psyllium Husk) 0.52 Gm Capsule 0.52 Gm GT TID PRN Terbinafine Hcl 30 Gm Cream..g. 30 Gm TP BID PRN Desitin (Zinc Oxide) 57 Gm Cream..g. 1 Enrrique TP DAILY PRN Clotrimazole 15 Gm Cream..g. 1 Enrrique TP BID PRN Tinactin (Tolnaftate) 150 Gm [place] 1 [place] TP BID PRN 10 Days [Sodium Chloride 0.9%] 1 Vial INH QID Miralax (Polyethylene Glycol 3350) 17 Gm Powd.pack 1 Packet GT BID PRN 2 Days dissolve in water Ibuprofen 100 Mg/5 Ml Oral.susp 400 Mg GT QID PRN Triple Antibiotic Ointment (Neomy Sulf/Bacitrac Zn/Poly) 1 Each Oint.pack 1 Each TP BID PRN Preparation H Ointment (Phenyleph/Mineral Oil/Petrolat) 28 Gm Oint.appl 28 Gm RC QID PRN [[Boric Acid]] 2 Puff AD 3X/WEEK Albuterol Sulfate Conc Neb Soln (Albuterol Sulfate) 2.5 Mg/0.5 Ml Vial.neb 1 Vial NEB Q6HRS Tylenol Cold-Flu Severe Liq (Phenylephrine/Dm/Acetaminop/Gg) 240 Ml Liquid 20-30 Ml GT Q6-8HRS PRN Acetaminophen Oral Liquid (Acetaminophen) 650 Mg/20.3 Ml Solution 960 Mg GT PRN Q6HRS PRN Generlac (Lactulose) 10 Gm/15 Ml Solution 30 Ml GT Q12HR PRN Esomeprazole Magnesium 40 Mg Capsule.dr 40 Mg GT DAILY Fluticasone Propionate Nasal [place] (Fluticasone Propionate) 16 Gm [place].susp 2 Sprays NS DAILY PRN Terazosin Hcl 2 Mg Capsule 1 Cap GT DAILY Co Q-10 (Ubidecarenone) 200 Mg Capsule 1 Cap GT TID Calcium Carbonate 500 Mg/5 Ml Oral.susp 6 Ml GT DAILY Allergies Allergies: Coded Allergies: vancomycin (Unverified Allergy, Severe, hives, 09/08/14) Sulfa (Sulfonamide Antibiotics) (Unverified Allergy, Intermediate, 09/08/14) amoxicillin (Unverified Adverse Reaction, Intermediate, diarrhea, 09/08/14) clavulanic acid (Unverified Adverse Reaction, Intermediate, diarrhea, 09/08/14) clindamycin (Unverified Adverse Reaction, Intermediate, diarrhea, 09/08/14) Physical Exam General: Alert, Other (Able to answer questions although somewhat limited due to his muscular dystrophy) HEENT: Other (Tracheostomy) Lungs: Clear to auscultation Heart: Regular rate, Normal S1, Normal S2 Abdomen: Normal bowel sounds, Soft, No tenderness, No masses Neuro: Other (Wheelchair-bound, muscle weakness and atrophy.) Vitals VITALS Vital Signs Date Time Temp Pulse Resp B/P (MAP) Pulse Ox O2 Delivery O2 Flow Rate FiO2 12/04/19 06:13 99.0 91 16 100/62 (75) 98 Tracheal Collar 99.0 Labs Labs Laboratory Tests Test 12/02/19 11:08 12/02/19 11:45 12/02/19 12:15 12/03/19 04:30 Urine Collection Type Unknown Urine Color Red Urine Clarity Turbid Urine pH 6.0 (<5.0-8.0) Urine Specific Orange 1.015 (1.000-1.030) Urine Protein >=300 mg/dL (NEG-TRACE) Urine Glucose (UA) Negative mg/dL (NEG) Urine Ketones (Stick) Trace mg/dL (NEG) Urine Blood Large (NEG) Urine Nitrite Positive (NEG) Urine Bilirubin Negative (NEG) Urine Urobilinogen Dipstick 1.0 mg/dL (0.2 mg/dL) Urine Leukocyte Esterase Large (NEG) Urine RBC 20-40 /HPF (0-2) Urine WBC Tntc /HPF (0-4) Urine Squamous Epithelial Cells None /LPF Urine Bacteria Few /HPF (0-FEW) White Blood Count 8.4 x10^3/uL (4.0-11.0) 7.2 x10^3/uL (4.0-11.0) Red Blood Count 5.66 x10^6/uL (4.30-5.70) 4.45 x10^6/uL (4.30-5.70) Hemoglobin 17.1 g/dL (13.0-17.5) 13.4 g/dL (13.0-17.5) Hematocrit 51.3 % (39.0-53.0) 40.1 % (39.0-53.0) Mean Corpuscular Volume 91 fL (79-100) 90 fL (79-100) Mean Corpuscular Hemoglobin 30 pg (25-35) 30 pg (25-35) Mean Corpuscular Hemoglobin Concent 33 g/dL (31-37) 34 g/dL (31-37) Red Cell Distribution Width 14.1 % (11.5-14.5) 14.1 % (11.5-14.5) Platelet Count 115 x10^3/uL (140-400) 119 x10^3/uL (140-400) Neutrophils (%) (Auto) 88 % (31-73) 70 % (31-73) Lymphocytes (%) (Auto) 6 % (24-48) 18 % (24-48) Monocytes (%) (Auto) 6 % (0-9) 11 % (0-9) Eosinophils (%) (Auto) 1 % (0-3) 2 % (0-3) Basophils (%) (Auto) 0 % (0-3) 0 % (0-3) Neutrophils # (Auto) 7.4 x10^3/uL (1.8-7.7) 5.0 x10^3/uL (1.8-7.7) Lymphocytes # (Auto) 0.5 x10^3/uL (1.0-4.8) 1.3 x10^3/uL (1.0-4.8) Monocytes # (Auto) 0.5 x10^3/uL (0.0-1.1) 0.8 x10^3/uL (0.0-1.1) Eosinophils # (Auto) 0.0 x10^3/uL (0.0-0.7) 0.1 x10^3/uL (0.0-0.7) Basophils # (Auto) 0.0 x10^3/uL (0.0-0.2) 0.0 x10^3/uL (0.0-0.2) Segmented Neutrophils % 68 % (35-66) Band Neutrophils % 18 % (0-9) Lymphocytes % 7 % (24-48) Monocytes % 7 % (0-10) Toxic Granulation Slight Platelet Estimate Adequate (ADEQUATE) Platelet Clumps, EDTA Present Giant Platelets Occ Sodium Level 141 mmol/L (136-145) 140 mmol/L (136-145) Potassium Level 3.7 mmol/L (3.5-5.1) 3.1 mmol/L (3.5-5.1) Chloride Level 108 mmol/L (98-107) 109 mmol/L (98-107) Carbon Dioxide Level 23 mmol/L (21-32) 22 mmol/L (21-32) Anion Gap 10 (6-14) 9 (6-14) Blood Urea Nitrogen 15 mg/dL (8-26) 15 mg/dL (8-26) Creatinine 0.2 mg/dL (0.7-1.3) 0.2 mg/dL (0.7-1.3) Estimated GFR (Cockcroft-Gault) > 300.0 > 300.0 BUN/Creatinine Ratio 75 (6-20) Glucose Level 123 mg/dL (70-99) 68 mg/dL (70-99) Lactic Acid Level 1.6 mmol/L (0.4-2.0) Calcium Level 9.3 mg/dL (8.5-10.1) 8.7 mg/dL (8.5-10.1) Total Bilirubin 1.0 mg/dL (0.2-1.0) Aspartate Amino Transf (AST/SGOT) 18 U/L (15-37) Alanine Aminotransferase (ALT/SGPT) 21 U/L (16-63) Alkaline Phosphatase 133 U/L (46-116) Total Protein 7.8 g/dL (6.4-8.2) Albumin 3.4 g/dL (3.4-5.0) Albumin/Globulin Ratio 0.8 (1.0-1.7) Lipase 74 U/L (73-393) Prothrombin Time 17.1 SEC (11.7-14.0) Prothromb Time International Ratio 1.4 (0.8-1.1) Images Images Fecal impaction Assessment/Plan Assessment/Plan New onset fecal impaction associated with change in bowel pattern. This is a new event for him. Curiously in spite of his fairly significant muscular dystrophy he is not had a history of fecal impactions or need for previous digital disimpaction or enemas. He does have occasional constipation for which he takes MiraLAX. These new symptoms are accompanied by fever and urinary tract infection. Plan: Continue present treatment with either lactulose or MiraLAX as ordered-but overnight he has had several bowel movements so these can be changed to as needed Mineral oil enema as needed Check KUB since overnight he has had several bowel movements which suggests that he probably has passed the fecal impaction OMAR SOLANO MD Dec 04, 2019 09:48
--- NOTE | 2019-12-04 09:54 | PDOC ---
PROGRESS NOTES Date of Service: DATE: 12/04/19 TIME: 09:50 Chief Complaint Chief Complaint VTE Prophylaxis Ordered VTE Prophylaxis Devices: No VTE Pharmacological Prophylaxi: Yes Assessment/Plan Assessment/Plan Pyelonephritis, acute History of MS Wheelchair-bound Thrombocytopenia Bandemia could represent early sepsis present on admission but no other markers positive for sepsis given normal lactic acid Cystitis as per CT scan MAY HAVE neurogenic bladder Findings compatible with rectal fecal impaction. Evidence of chronic neurologic disease with extensive thoracolumbar spinal dorsal fusion hardware. Fibrofatty infiltration of the distal small bowel wall, possibly reflecting previous episodes of bowel inflammation. HYPOKALEMIA, on replacement chronic respiratory failure continue home ventilator 12/03 mother thinks he has difficulty with voiding , will bladder scan q shift, NEEDS DPOA REVIEW has no dpoa at this time, kub pending, not much urine output recorded will add iv fluid support D/W RN, NEEDS // home straight cath q 8 hrs prn NURSE 28 MIN PT EXAM, CHART REVIEW, > 50% OF TIME SPENT WITH EXAM, CHART REVIEW, PT CARE COORDINATION Plan Broad-spectrum antibiotics with ceftriaxone Resume supportive measures Replace electrolytes as needed Follow urinary output We will provide oral resuscitation Resume home medications once available for review DVT prophylaxis with Lovenox bladder scan protocol renal sono r/o hydronephrosis GI CONSULT DULCOLAX SUPP GREATER THAN 100,000 CFU/ML GRAM NEGATIVE RODS on 12/03/19 at 1028 FINAL ID= [CITROBACTER KOSERI] History of Present Illness History of Present Illness History of Present Illness History of Present Illness Patient is a 29 year old male with past medical history of muscular dystrophy, 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 The patient is uable to provide much details since he has a trach in place He seems acutely ill but currently in no acute distress, he is oriented in person and does nto seem to be in respiratory distress, no abdominal pain reported, he denies fever or chills but according to documentation he presented fever at home reason why he was brought to the Er for further evaluation and treatment. Patient suffers from multiple sclerosis and apparently has been wheelchair-bound for a long time now. Patient has reported had a fever last evening but he does not seem to be coughing nor having an acute chest discomfort. Patient is laying on the stretcher in no apparent distress plan of care has been explained in detail to the patient to the best of my abilities. He will be admitted for broad-spectrum antibiotic therapy and close monitoring. His laboratory data seems quite unremarkable despite having the findings on CAT scan consistent with pyelonephritis. Hopefully this is a early stages and we managed to overt complications from a generalized infection. ER history as follows: Past Medical History Past Medical History: Pneumonia, Other Additional Past Medical Histor: muscular dystrophy, trache, pneumothorax, silent aspirations, contractures Past Surgical History: Tonsillectomy, Other Additional Past Surgical Histo: trache, rods and screws in spine, right ear grafts Smoking Status: Never Smoker Alcohol Use: None Drug Use: None General Adult EDM: Chief Complaint: BLOOD IN URINE HPI: HPI: Patient is a 29 year old male who presents with 2 days of back pain and abdominal pain with pain with urination. He states that he is also been constipated but had a bowel movement yesterday. He states he also ran a fever last night. He states he does not have any abdominal pain or back pain today. He was afebrile here in the ED. He had taken some ibuprofen. Patient currently complains of no pain. Patient denies chest pain, shortness of breath, cough, nausea, vomiting, diarrhea, headache, dizziness, focal weakness. Patient is in a motorized wheelchair. He has history of MS, trach, pneumothorax, silent aspirations, contractures, rods and screws in spine, tonsillectomy, right ear grafts. Past Medical History Pulmonary: Pneumonia CENTRAL NERVOUS SYSTEM: Other (Multiple sclerosis) Past Surgical History Past Surgical History: Tonsillectomy, No pertinent history (Tracheostomy in place) Family History Family History: Family History Unknown Social History Smoke: No ALCOHOL: none Drugs: None Current Problem List Problem List Problems Medical Problems: (1) Pyelonephritis Status: Acute Current Medications Vitals Vitals Vital Signs Date Time Temp Pulse Resp B/P (MAP) Pulse Ox O2 Delivery O2 Flow Rate FiO2 12/04/19 09:44 91 100/62 12/04/19 06:13 99.0 16 98 Tracheal Collar 99.0 Physical Exam Physical Exam Physical Exam Physical Exam GEN.: No apparent distress. Alert and oriented to person HEENT: Head is normocephalic, atraumatic NECK: Supple. LUNGS: Clear to auscultation. HEART: RRR, S1, S2 present. Tachycardic peripheral pulses intact ABDOMEN: Soft, nontender. Distended positive bowel sounds. EXTREMITIES: Without any cyanosis. NEUROLOGIC: Cranial nerves II to XII grossly intact moves all extremities no sensory deficits PSYCHIATRIC: Unable to assess SKIN: No ulcerations General: Alert, Oriented X3, Cooperative, No acute distress Heart: Regular rate Lungs: Clear Abdomen: Normal bowel sounds, Soft, Other (OBESE, MILD DISTENTION) Extremities: No clubbing, No cyanosis, No edema Labs LABS URINE CULTURE Final Final GREATER THAN 100,000 CFU/ML GRAM NEGATIVE RODS on 12/03/19 at 1028 FINAL ID= [CITROBACTER KOSERI] Three or more organisms isolated. Results consistent with colonization or contamination during the collection process. Recollection recommended using a method to minimize contamination. An ID and Sensitivity will be performed when one organism is predominant and a likely pathogen. Testing Performed by: [address] [address] For Inquires, the Physician may contact the Microbiology department at [phone] CITROBACTER KOSERI ANTIMICROBIAL SUSCEPTIBILITY Final Comment NEG LIZETH 56 CITROBACTER KOSERI ANTIBIOTIC RESULT INTERPRETATION AMPICILLIN/SULBACTAM <=4/2 S AMIKACIN <=16 S AMPICILLIN >16 R AMOXICILLIN/K CLAVULANATE <=8/4 S AZTREONAM <=4 S CEFTRIAXONE <=1 S CEFTAZIDIME <=1 S CEFOTAXIME <=2 S CEFOXITIN <=8 S CIPROFLOXACIN <=0.25 S CEFEPIME <=2 S CEFUROXIME <=4 S CEFTAZIDIME/AVIBACTAM <=4 S ERTAPENEM <=0.5 S NITROFURANTOIN <=32 S GENTAMICIN <=2 S LEVOFLOXACIN <=0.5 S MEROPENEM <=1 S EXAM: CT Abdomen and Pelvis with IV contrast INDICATION: Reason: pain, urinary symptoms, fever / Spl. Instructions: omni 300 75ml / History: TECHNIQUE: Multi-detector row CT images were acquired from the lung bases through the abdomen and pelvis with the use of IV contrast. Sagittal and coronal images were acquired from the transaxial data. All CT scans performed at this facility utilize dose optimization techniques as appropriate to the exam, including the following: Automated exposure control and adjustment of the mA and/or KV according to patient size (this includes techniques or standardized protocols for targeted exams where dose is indication/reason for exam). IV CONTRAST: Administered ORAL CONTRAST: Not administered COMPARISON: None FINDINGS: LOWER CHEST: Unremarkable LIVER: Unremarkable BILIARY SYSTEM: Gallbladder is unremarkable. Bile ducts are not dilated. PANCREAS: Unremarkable SPLEEN: Unremarkable ADRENALS: Unremarkable KIDNEYS & URETERS: Unremarkable BLADDER: Marked urinary bladder distention with wall thickening REPRODUCTIVE ORGANS: Unremarkable GASTROINTESTINAL: The stomach contains a percutaneous gastrostomy tube. The small bowel is fluid-filled but not distended. Some fibrofatty infiltration of the distal small bowel loops could reflect the sequelae of previous inflammation. Colon shows mostly liquid stool except in the rectum where fecal distention with solid debris to a 5.3 cm transverse diameter is present all the way to the anorectal junction.. The appendix is normal. MESENTERY/PERITONEUM/RETROPERITONEUM: Unremarkable VASCULAR: Unremarkable LYMPH NODES: No adenopathy OSSEOUS & SOFT TISSUES: Diffuse muscular atrophy in a pattern suggesting chronic quadriplegia. Extensive raphael and pedicle screw construct spinal fusion hardware is present from the sacrum through the upper thoracic spine and beyond the included field of view. There is residual mild leftward convexity scoliotic curvature. IMPRESSION: 1. Findings suspicious for cystitis with distended urinary bladder. Consider bladder decompression. 2. Findings compatible with rectal fecal impaction. 3. Evidence of chronic neurologic disease with extensive thoracolumbar spinal dorsal fusion hardware. 4. Fibrofatty infiltration of the distal small bowel wall, possibly reflecting previous episodes of bowel inflammation. Correlate clinically. Electronically signed by: Amaury Woo MD (12/02/2019 1:01 PM) [id number] DICTATED and SIGNED BY: AMAURY WOO MD DATE: 12/02/19 1301 EXAM: Renal sonogram. HISTORY: Polynephritis. TECHNIQUE: Sonographic imaging of the kidneys and bladder was performed. COMPARISON: CT dated 12/02/2019. FINDINGS: The kidneys are normal in size. No solid or cystic renal lesion is seen. There is no hydronephrosis. The urinary bladder is unremarkable. IMPRESSION: Sonographically unremarkable kidneys. Electronically signed by: Katty Hameed MD (12/03/2019 11:37 AM) [id number] DICTATED and SIGNED BY: KATTY HAMEED MD DATE: 12/03/19 1136 Assessment and Plan Assessmemt and Plan Problems Medical Problems: (1) Pyelonephritis Status: Acute Comment Review of Relevant I have reviewed the following items moses (where applicable) has been applied. Labs Laboratory Tests Test 12/02/19 11:08 12/02/19 11:45 12/02/19 12:15 12/03/19 04:30 Urine Collection Type Unknown Urine Color Red Urine Clarity Turbid Urine pH 6.0 (<5.0-8.0) Urine Specific [place] 1.015 (1.000-1.030) Urine Protein >=300 mg/dL (NEG-TRACE) Urine Glucose (UA) Negative mg/dL (NEG) Urine Ketones (Stick) Trace mg/dL (NEG) Urine Blood Large (NEG) Urine Nitrite Positive (NEG) Urine Bilirubin Negative (NEG) Urine Urobilinogen Dipstick 1.0 mg/dL (0.2 mg/dL) Urine Leukocyte Esterase Large (NEG) Urine RBC 20-40 /HPF (0-2) Urine WBC Tntc /HPF (0-4) Urine Squamous Epithelial Cells None /LPF Urine Bacteria Few /HPF (0-FEW) White Blood Count 8.4 x10^3/uL (4.0-11.0) 7.2 x10^3/uL (4.0-11.0) Red Blood Count 5.66 x10^6/uL (4.30-5.70) 4.45 x10^6/uL (4.30-5.70) Hemoglobin 17.1 g/dL (13.0-17.5) 13.4 g/dL (13.0-17.5) Hematocrit 51.3 % (39.0-53.0) 40.1 % (39.0-53.0) Mean Corpuscular Volume 91 fL (79-100) 90 fL (79-100) Mean Corpuscular Hemoglobin 30 pg (25-35) 30 pg (25-35) Mean Corpuscular Hemoglobin Concent 33 g/dL (31-37) 34 g/dL (31-37) Red Cell Distribution Width 14.1 % (11.5-14.5) 14.1 % (11.5-14.5) Platelet Count 115 x10^3/uL (140-400) 119 x10^3/uL (140-400) Neutrophils (%) (Auto) 88 % (31-73) 70 % (31-73) Lymphocytes (%) (Auto) 6 % (24-48) 18 % (24-48) Monocytes (%) (Auto) 6 % (0-9) 11 % (0-9) Eosinophils (%) (Auto) 1 % (0-3) 2 % (0-3) Basophils (%) (Auto) 0 % (0-3) 0 % (0-3) Neutrophils # (Auto) 7.4 x10^3/uL (1.8-7.7) 5.0 x10^3/uL (1.8-7.7) Lymphocytes # (Auto) 0.5 x10^3/uL (1.0-4.8) 1.3 x10^3/uL (1.0-4.8) Monocytes # (Auto) 0.5 x10^3/uL (0.0-1.1) 0.8 x10^3/uL (0.0-1.1) Eosinophils # (Auto) 0.0 x10^3/uL (0.0-0.7) 0.1 x10^3/uL (0.0-0.7) Basophils # (Auto) 0.0 x10^3/uL (0.0-0.2) 0.0 x10^3/uL (0.0-0.2) Segmented Neutrophils % 68 % (35-66) Band Neutrophils % 18 % (0-9) Lymphocytes % 7 % (24-48) Monocytes % 7 % (0-10) Toxic Granulation Slight Platelet Estimate Adequate (ADEQUATE) Platelet Clumps, EDTA Present Giant Platelets Occ Sodium Level 141 mmol/L (136-145) 140 mmol/L (136-145) Potassium Level 3.7 mmol/L (3.5-5.1) 3.1 mmol/L (3.5-5.1) Chloride Level 108 mmol/L (98-107) 109 mmol/L (98-107) Carbon Dioxide Level 23 mmol/L (21-32) 22 mmol/L (21-32) Anion Gap 10 (6-14) 9 (6-14) Blood Urea Nitrogen 15 mg/dL (8-26) 15 mg/dL (8-26) Creatinine 0.2 mg/dL (0.7-1.3) 0.2 mg/dL (0.7-1.3) Estimated GFR (Cockcroft-Gault) > 300.0 > 300.0 BUN/Creatinine Ratio 75 (6-20) Glucose Level 123 mg/dL (70-99) 68 mg/dL (70-99) Lactic Acid Level 1.6 mmol/L (0.4-2.0) Calcium Level 9.3 mg/dL (8.5-10.1) 8.7 mg/dL (8.5-10.1) Total Bilirubin 1.0 mg/dL (0.2-1.0) Aspartate Amino Transf (AST/SGOT) 18 U/L (15-37) Alanine Aminotransferase (ALT/SGPT) 21 U/L (16-63) Alkaline Phosphatase 133 U/L (46-116) Total Protein 7.8 g/dL (6.4-8.2) Albumin 3.4 g/dL (3.4-5.0) Albumin/Globulin Ratio 0.8 (1.0-1.7) Lipase 74 U/L (73-393) Prothrombin Time 17.1 SEC (11.7-14.0) Prothromb Time International Ratio 1.4 (0.8-1.1) Microbiology 12/02/19 Blood Culture - Preliminary, Resulted NO GROWTH AFTER 1 DAY 12/02/19 Urine Culture - Final, Complete 12/02/19 Antimicrobic Susceptibility - Final, Complete Medications Current Medications Sodium Chloride 1,000 ml @ 1,000 mls/hr Q1H IV Last administered on 12/02/19at 12:07; Start 12/02/19 at 11:12; Stop 12/02/19 at 12:11; Status DC Ciprofloxacin/ Dextrose 200 ml @ 200 mls/hr 1X ONCE IV Last administered on 12/02/19at 12:08; Start 12/02/19 at 11:30; Stop 12/02/19 at 12:29; Status DC Iohexol (Omnipaque 300 Mg/ml) 75 ml 1X ONCE IV Last administered on 12/02/19at 12:46; Start 12/02/19 at 12:30; Stop 12/02/19 at 12:31; Status DC Info (CONTRAST GIVEN -- Rx MONITORING) 1 each PRN DAILY PRN MC SEE COMMENTS; Start 12/02/19 at 12:30; Stop 12/04/19 at 12:29 Sodium Chloride 1,000 ml @ 1,000 mls/hr 1X ONCE IV ; Start 12/02/19 at 13:00; Stop 12/02/19 at 13:59; Status DC Sodium Monofluorophosphate (Fleet Adult) 133 ml 1X ONCE MS ; Start 12/02/19 at 13:15; Stop 12/02/19 at 13:16; Status DC Polyethylene Glycol (miraLAX PACKET) 17 gm 1X ONCE PO Last administered on 12/02/19at 14:45; Start 12/02/19 at 14:45; Stop 12/02/19 at 14:46; Status DC Acetaminophen (Tylenol) 650 mg PRN Q6HRS PRN PO Headaches, Temp > 101.5'; Start 12/02/19 at 15:30; Status Cancel Lorazepam (Ativan Inj) 0.5 mg PRN Q6HRS PRN IVP ANXIETY / AGITATION; Start 12/02/19 at 15:30 Ondansetron HCl (Zofran) 4 mg PRN Q6HRS PRN IVP NAUSEA/VOMITING; Start 12/02/19 at 15:30 Famotidine (Pepcid) 20 mg BID PO Last administered on 12/04/19at 09:44; Start 12/02/19 at 21:00 Zolpidem Tartrate (Ambien) 5 mg PRN QHS PRN PO INSOMNIA, MAY REPEAT IN 1HR; Start 12/02/19 at 15:30 Info (Icu Electrolyte Protocol) 1 ea DAILY MC ; Start 12/03/19 at 09:00 Enoxaparin Sodium (Lovenox 40mg Syringe) 40 mg Q24H SQ ; Start 12/02/19 at 21:00 Sodium Chloride (Normal Saline Flush) 3 ml QSHIFT PRN IV AFTER MEDS AND BLOOD DRAWS; Start 12/02/19 at 15:30 Acetaminophen/ Hydrocodone Bitart (Lortab 5/325) 1 tab PRN Q4HRS PRN PO MODERATE PAIN; Start 12/02/19 at 15:30 Oxycodone/ Acetaminophen (Percocet 5/325) 1 tab PRN Q4HRS PRN PO SEVERE PAIN; Start 12/02/19 at 15:30 Morphine Sulfate (Morphine Sulfate) 2 mg PRN Q1HR PRN IV PAIN; Start 12/02/19 at 15:30 Senna/Docusate Sodium (Senna Plus) 1 tab BID PO Last administered on 12/03/19at 10:23; Start 12/02/19 at 21:00 Lactulose (Lactulose) 20 gm PRN Q12HR PRN PO CONSTIPATION; Start 12/02/19 at 15:30; Stop 12/03/19 at 00:07; Status DC Ceftriaxone Sodium (Rocephin) 1 gm Q24H IVP Last administered on 12/03/19at 18:11; Start 12/02/19 at 17:00 Albuterol Sulfate (Ventolin Neb Soln) 5 mg Q6H NEB Last administered on 12/04/19at 05:58; Start 12/02/19 at 18:00 Ibuprofen (Children'S Motrin) 400 mg PRN QID PRN GT INFLAMMATION Last administered on 12/03/19at 21:24; Start 12/02/19 at 22:15 Terazosin HCl (Hytrin) 2 mg DAILY PO Last administered on 12/04/19at 09:44; Start 12/03/19 at 09:00 Polyethylene Glycol (miraLAX PACKET) 17 gm PRN BID PRN PO CONSTIPATION Last administered on 12/02/19at 22:57; Start 12/02/19 at 22:15 Terazosin HCl (Hytrin) 1 mg 1X ONCE PO Last administered on 12/02/19at 22:58; Start 12/02/19 at 22:30; Stop 12/02/19 at 22:31; Status DC Acetaminophen (Tylenol) 960 mg PRN Q6HRS PRN GT MILD PAIN / TEMP > 100.3'F; Start 12/02/19 at 23:45 Clotrimazole (Lotrimin) 1 kell PRN BID PRN TP FUNGAL INFECTION; Start 12/02/19 at 23:45 Fluticasone Propionate (Flonase) 2 spray PRN DAILY PRN NS ALLERGIES; Start 12/02/19 at 23:45 Hydrocortisone (Cortaid) 1 kell PRN DAILY PRN TP ITCHING; Start 12/03/19 at 00:30 Ketoconazole (Nizoral 2% Topical) 1 kell PRN DAILY PRN TP SKIN IRRITATION; Start 12/02/19 at 23:45 Neomycin/ Polymyxin/ Bacitracin (Triple Antibiotic Ointment) 1 pkt PRN BID PRN TP ABRASIONS; Start 12/02/19 at 23:45 Nystatin (Mycostatin) 1 kell PRN BID PRN TP RASH; Start 12/02/19 at 23:45 Calcium Carbonate/ Glycine (Tums) 500 mg DAILY GT Last administered on 12/04/19at 09:44; Start 12/03/19 at 09:00 Lansoprazole (Prevacid) 30 mg BIDBFRMEAL GT Last administered on 12/03/19at 18:12; Start 12/03/19 at 07:30 Lactobacillus Rhamnosus (Culturelle) 1 cap BID PO Last administered on 12/04/19at 09:44; Start 12/03/19 at 09:00 Lactulose (Lactulose) 20 gm PRN Q12HRS PRN PO CONSTIPATION; Start 12/02/19 at 23:45; Stop 12/03/19 at 00:19; Status DC Guaifenesin (Robitussin Dm) 10 ml PRN Q6HRS PRN PEG COUGH Last administered on 12/04/19at 09:43; Start 12/03/19 at 00:30 Psyllium Hydrophilic Mucilloid (Metamucil Fiber Packet) 1 pkt PRN DAILY PRN GT CONSTIPATIN; Start 12/03/19 at 09:00 Non-Formulary Medication (Terbinafine Hcl ) 30 gm BID PRN TP FUNGAL TOE INFECT ION; Start 12/02/19 at 23:45; Status UNV Tolnaftate (Tinactin) 1 kell PRN BID PRN TP ATHLETE'S FOOT; Start 12/03/19 at 00:15 Non-Formulary Medication (Ubidecarenone (Co Q-10)) 1 cap TID GT ; Start 12/03/19 at 09:00; Status UNV Zinc Oxide (Zinc Oxide 20% Topical) 1 kell PRN DAILY PRN TP TO STOMA; Start 12/03/19 at 00:15 Lactulose (Lactulose) 20 gm PRN Q12HRS PRN PO CONSTIPATION; Start 12/03/19 at 00:19 Potassium Bicarbonate (Potassium Effervescent Tablet) 40 meq 1X ONCE PEG Last administered on 12/03/19at 10:26; Start 12/03/19 at 10:30; Stop 12/03/19 at 10:31; Status DC Bisacodyl (Dulcolax Supp) 10 mg PRN DAILY PRN MS CONSTIPATION; Start 12/03/19 at 11:15 Mineral Oil (Fleet Mineral Oil) 133 ml 1X ONCE MS ; Start 12/03/19 at 13:00; Stop 12/03/19 at 13:01; Status DC Active Scripts Active Reported Probiotic (Lactobacillus Acidophilus) 1 Each Capsule 1 Cap GT DAILY Senna (Sennosides) 8.8 Mg/5 Ml Syrup 8.8 Mg GT DAILY PRN Ketoconazole 15 Gm Cream..g. 1 Kell TP DAILY PRN Hydrocortisone 30 Gm Cream.appl 1 Kell TP DAILY PRN Nystatin 15 Gm Oint...g. 1 Kell TP BID PRN Psyllium Fiber (Psyllium Husk) 0.52 Gm Capsule 0.52 Gm GT TID PRN Terbinafine Hcl 30 Gm Cream..g. 30 Gm TP BID PRN Desitin (Zinc Oxide) 57 Gm Cream..g. 1 Kell TP DAILY PRN Clotrimazole 15 Gm Cream..g. 1 Kell TP BID PRN Tinactin (Tolnaftate) 150 Gm [place] 1 [place] TP BID PRN 10 Days [Sodium Chloride 0.9%] 1 Vial INH QID Miralax (Polyethylene Glycol 3350) 17 Gm Powd.pack 1 Packet GT BID PRN 2 Days dissolve in water Ibuprofen 100 Mg/5 Ml Oral.susp 400 Mg GT QID PRN Triple Antibiotic Ointment (Neomy Sulf/Bacitrac Zn/Poly) 1 Each Oint.pack 1 Each TP BID PRN Preparation H Ointment (Phenyleph/Mineral Oil/Petrolat) 28 Gm Oint.appl 28 Gm RC QID PRN [[Boric Acid]] 2 Puff AD 3X/WEEK Albuterol Sulfate Conc Neb Soln (Albuterol Sulfate) 2.5 Mg/0.5 Ml Vial.neb 1 Vial NEB Q6HRS Tylenol Cold-Flu Severe Liq (Phenylephrine/Dm/Acetaminop/Gg) 240 Ml Liquid 20-30 Ml GT Q6-8HRS PRN Acetaminophen Oral Liquid (Acetaminophen) 650 Mg/20.3 Ml Solution 960 Mg GT PRN Q6HRS PRN Generlac (Lactulose) 10 Gm/15 Ml Solution 30 Ml GT Q12HR PRN Esomeprazole Magnesium 40 Mg Capsule.dr 40 Mg GT DAILY Fluticasone Propionate Nasal [place] (Fluticasone Propionate) 16 Gm [place].susp 2 Sprays NS DAILY PRN Terazosin Hcl 2 Mg Capsule 1 Cap GT DAILY Co Q-10 (Ubidecarenone) 200 Mg Capsule 1 Cap GT TID Calcium Carbonate 500 Mg/5 Ml Oral.susp 6 Ml GT DAILY Vitals/I & O Vital Sign - Last 24 Hours 12/03/19 12/03/19 12/03/19 12/03/19 10:57 11:48 12:02 15:00 Temp 98.4 98.5 98.4 98.5 Pulse 104 104 110 Resp 20 18 B/P (MAP) 112/72 (85) 112/72 144/85 (104) Pulse Ox 98 100 93 O2 Delivery Room Air Room Air Room Air 12/03/19 12/03/19 12/03/19 12/03/19 17:11 19:34 20:00 22:20 Temp 98.7 98.7 Pulse 95 Resp 20 B/P (MAP) 97/64 (75) Pulse Ox 100 98 95 O2 Delivery Room Air Tracheal Collar Mechanical Ventilator Room Air 12/03/19 12/04/19 12/04/19 12/04/19 22:49 03:15 06:13 09:44 Temp 99.2 98.8 99.0 99.2 98.8 99.0 Pulse 89 73 91 91 Resp 16 16 16 B/P (MAP) 80/45 (57) 87/49 (62) 100/62 (75) 100/62 Pulse Ox 97 98 98 O2 Delivery Tracheal Collar Tracheal Collar Tracheal Collar Intake and Output 12/03/19 12/03/19 12/04/19 15:00 23:00 07:00 Intake Total 0 ml 480 ml Output Total 1 ml Balance 0 ml -1 ml 480 ml Justicifation of Admission Dx: Justifications for Admission: Justification of Admission Dx: Yes Sepsis: Dehydration LITO ALEJO MD Dec 04, 2019 09:54
[2019-12-04] MEDS ORDERED: POTASSIUM CHLORIDE 20 MEQ TABLET.ER. PO ONE (10:00)
--- NOTE | 2019-12-04 10:30 | PDOC ---
PULMONARY PROGRESS NOTES DATE: 12/04/19 TIME: 10:27 Subjective Patient is resting comfortably on room air Denies any shortness of breath, cough or chest pain No overnight concerns from nursing Vitals Vital Signs Date Time Temp Pulse Resp B/P (MAP) Pulse Ox O2 Delivery O2 Flow Rate FiO2 12/04/19 09:44 91 100/62 12/04/19 06:13 99.0 16 98 Tracheal Collar 99.0 ROS: No Nausea, No Chest Pain, No Abdominal Pain, No Increase Cough General: Alert, Oriented X4 HEENT: Other (trach midline ) Lungs: Clear Abdomen: Soft, Other (firm) Neuro Exam: Alert Extremities: No Edema Skin: Warm, Dry Labs Laboratory Tests Test 12/02/19 11:08 12/02/19 11:45 12/02/19 12:15 12/03/19 04:30 Urine Collection Type Unknown Urine Color Red Urine Clarity Turbid Urine pH 6.0 (<5.0-8.0) Urine Specific [place] 1.015 (1.000-1.030) Urine Protein >=300 mg/dL (NEG-TRACE) Urine Glucose (UA) Negative mg/dL (NEG) Urine Ketones (Stick) Trace mg/dL (NEG) Urine Blood Large (NEG) Urine Nitrite Positive (NEG) Urine Bilirubin Negative (NEG) Urine Urobilinogen Dipstick 1.0 mg/dL (0.2 mg/dL) Urine Leukocyte Esterase Large (NEG) Urine RBC 20-40 /HPF (0-2) Urine WBC Tntc /HPF (0-4) Urine Squamous Epithelial Cells None /LPF Urine Bacteria Few /HPF (0-FEW) White Blood Count 8.4 x10^3/uL (4.0-11.0) 7.2 x10^3/uL (4.0-11.0) Red Blood Count 5.66 x10^6/uL (4.30-5.70) 4.45 x10^6/uL (4.30-5.70) Hemoglobin 17.1 g/dL (13.0-17.5) 13.4 g/dL (13.0-17.5) Hematocrit 51.3 % (39.0-53.0) 40.1 % (39.0-53.0) Mean Corpuscular Volume 91 fL (79-100) 90 fL (79-100) Mean Corpuscular Hemoglobin 30 pg (25-35) 30 pg (25-35) Mean Corpuscular Hemoglobin Concent 33 g/dL (31-37) 34 g/dL (31-37) Red Cell Distribution Width 14.1 % (11.5-14.5) 14.1 % (11.5-14.5) Platelet Count 115 x10^3/uL (140-400) 119 x10^3/uL (140-400) Neutrophils (%) (Auto) 88 % (31-73) 70 % (31-73) Lymphocytes (%) (Auto) 6 % (24-48) 18 % (24-48) Monocytes (%) (Auto) 6 % (0-9) 11 % (0-9) Eosinophils (%) (Auto) 1 % (0-3) 2 % (0-3) Basophils (%) (Auto) 0 % (0-3) 0 % (0-3) Neutrophils # (Auto) 7.4 x10^3/uL (1.8-7.7) 5.0 x10^3/uL (1.8-7.7) Lymphocytes # (Auto) 0.5 x10^3/uL (1.0-4.8) 1.3 x10^3/uL (1.0-4.8) Monocytes # (Auto) 0.5 x10^3/uL (0.0-1.1) 0.8 x10^3/uL (0.0-1.1) Eosinophils # (Auto) 0.0 x10^3/uL (0.0-0.7) 0.1 x10^3/uL (0.0-0.7) Basophils # (Auto) 0.0 x10^3/uL (0.0-0.2) 0.0 x10^3/uL (0.0-0.2) Segmented Neutrophils % 68 % (35-66) Band Neutrophils % 18 % (0-9) Lymphocytes % 7 % (24-48) Monocytes % 7 % (0-10) Toxic Granulation Slight Platelet Estimate Adequate (ADEQUATE) Platelet Clumps, EDTA Present Giant Platelets Occ Sodium Level 141 mmol/L (136-145) 140 mmol/L (136-145) Potassium Level 3.7 mmol/L (3.5-5.1) 3.1 mmol/L (3.5-5.1) Chloride Level 108 mmol/L (98-107) 109 mmol/L (98-107) Carbon Dioxide Level 23 mmol/L (21-32) 22 mmol/L (21-32) Anion Gap 10 (6-14) 9 (6-14) Blood Urea Nitrogen 15 mg/dL (8-26) 15 mg/dL (8-26) Creatinine 0.2 mg/dL (0.7-1.3) 0.2 mg/dL (0.7-1.3) Estimated GFR (Cockcroft-Gault) > 300.0 > 300.0 BUN/Creatinine Ratio 75 (6-20) Glucose Level 123 mg/dL (70-99) 68 mg/dL (70-99) Lactic Acid Level 1.6 mmol/L (0.4-2.0) Calcium Level 9.3 mg/dL (8.5-10.1) 8.7 mg/dL (8.5-10.1) Total Bilirubin 1.0 mg/dL (0.2-1.0) Aspartate Amino Transf (AST/SGOT) 18 U/L (15-37) Alanine Aminotransferase (ALT/SGPT) 21 U/L (16-63) Alkaline Phosphatase 133 U/L (46-116) Total Protein 7.8 g/dL (6.4-8.2) Albumin 3.4 g/dL (3.4-5.0) Albumin/Globulin Ratio 0.8 (1.0-1.7) Lipase 74 U/L (73-393) Prothrombin Time 17.1 SEC (11.7-14.0) Prothromb Time International Ratio 1.4 (0.8-1.1) Medications Active Scripts Medications Dose Route/Sig Max Daily Dose Days Date Category Dose Instructions Probiotic (Lactobacillus Acidophilus) 1 Each Capsule 1 Cap GT DAILY 12/02/19 Reported Senna (Sennosides) 8.8 Mg/5 Ml Syrup 8.8 Mg GT DAILY PRN 12/02/19 Reported Ketoconazole 15 Gm Cream..g. 1 [place] TP DAILY PRN 12/02/19 Reported Hydrocortisone 30 Gm Cream.appl 1 Enrrique TP DAILY PRN 12/02/19 Reported Nystatin 15 Gm Oint...g. 1 Enrrique TP BID PRN 12/02/19 Reported Psyllium Fiber (Psyllium Husk) 0.52 Gm Capsule 0.52 Gm GT TID PRN 12/02/19 Reported Terbinafine Hcl 30 Gm Cream..g. 30 Gm TP BID PRN 12/02/19 Reported Desitin (Zinc Oxide) 57 Gm Cream..g. 1 Enrrique TP DAILY PRN 12/02/19 Reported Clotrimazole 15 Gm Cream..g. 1 Enrrique TP BID PRN 12/02/19 Reported Tinactin (Tolnaftate) 150 Gm [place] 1 [place] TP BID PRN 10 12/02/19 Reported [Sodium Chloride 0.9%] 1 Vial INH QID 12/02/19 Reported Miralax (Polyethylene Glycol 3350) 17 Gm Powd.pack 1 Packet GT BID PRN 2 12/02/19 Reported dissolve in water Ibuprofen 100 Mg/5 Ml Oral.susp 400 Mg GT QID PRN 12/02/19 Reported Triple Antibiotic Ointment (Neomy Sulf/Bacitrac Zn/Poly) 1 Each Oint.pack 1 Each TP BID PRN 12/02/19 Reported Preparation H Ointment (Phenyleph/Mineral Oil/Petrolat) 28 Gm Oint.appl 28 Gm RC QID PRN 12/02/19 Reported [[Boric Acid]] 2 Puff AD 3X/WEEK 12/02/19 Reported Albuterol Sulfate Conc Neb Soln (Albuterol Sulfate) 2.5 Mg/0.5 Ml Vial.neb 1 Vial NEB Q6HRS 12/02/19 Reported Tylenol Cold-Flu Severe Liq (Phenylephrine/Dm/Acetaminop/Gg) 240 Ml Liquid 20-30 Ml GT Q6-8HRS PRN 12/02/19 Reported Acetaminophen Oral Liquid (Acetaminophen) 650 Mg/20.3 Ml Solution 960 Mg GT PRN Q6HRS PRN 12/02/19 Reported Generlac (Lactulose) 10 Gm/15 Ml Solution 30 Ml GT Q12HR PRN 12/02/19 Reported Esomeprazole Magnesium 40 Mg Capsule.dr 40 Mg GT DAILY 12/02/19 Reported Fluticasone Propionate Nasal [place] (Fluticasone Propionate) 16 Gm [place].susp 2 Sprays NS DAILY PRN 12/02/19 Reported Terazosin Hcl 2 Mg Capsule 1 Cap GT DAILY 12/02/19 Reported Co Q-10 (Ubidecarenone) 200 Mg Capsule 1 Cap GT TID 12/02/19 Reported Calcium Carbonate 500 Mg/5 Ml Oral.susp 6 Ml GT DAILY 12/02/19 Reported Impression . IMPRESSION: 1. Chronic respiratory failure secondary to muscular dystrophy, status post tracheotomy. 2. Acute pyelonephritis. 3. Thrombocytopenia. 4. Hyponatremia. 5. Hypokalemia. Plan . Patient is stable from a pulmonary standpoint Patient has chronic tracheostomy, capped trach during day, continue home ventilation at night Continue antibiotics per primary care Replace potassium, monitor electrolytes Follow GI recommendations secondary to fecal impaction DVT/GI prophylaxis: Lovenox/Pepcid Discussed with LOCO TAFOYA MD Dec 04, 2019 10:30
--- NOTE | 2019-12-04 13:33 | NUR ---
Pt requesting IV fluids and potassium be given after his family leaves. Administration will be late.
[2019-12-04] MEDS: IV NORMAL SALINE 1000ML BAG 1,000 ML IV SCH ×2 (16:01→21:41)
[2019-12-04] MEDS ORDERED: POTASSIUM BICARB 10 MEQ EFFERVESCENT TABLET. PEG ONE (16:15)
[2019-12-04] MEDS: cefTRIAXone IV Push 1 GM VIAL. IVP SCH (18:35)
[2019-12-04] MEDS: ENOXAPARIN 40 MG/0.4 ML SYRINGE. SQ SCH (21:00)
[2019-12-04] MEDS: IBUPROFEN 100 MG/5 ML ORAL.SUSP. GT PRN (21:41)
[2019-12-05 03:23] VITALS: BP 80/49
[2019-12-05] MEDS: ALBUTEROL SULFATE 2.5 MG/3 ML NEBU. NEB SCH ×3 (04:39→12:00)
[2019-12-05] MEDS: IV NORMAL SALINE 1000ML BAG 1,000 ML IV SCH (07:00)
[2019-12-05 07:55] VITALS: BP 105/68
[2019-12-05] MEDS: LANSOPRAZOLE 30 MG TAB.RAP.DR GT SCH (08:47)
[2019-12-05] MEDS: CALCIUM CARBONATE 500 MG TAB.CHEW GT SCH (08:47)
[2019-12-05] MEDS: TERAZOSIN 1 MG CAPSULE. PO SCH (08:47)
[2019-12-05] MEDS: SENNOSIDES/DOCUSATE 8.6/50MG TABLET. PO SCH ×2 (08:47→08:50)
[2019-12-05] MEDS: FAMOTIDINE 20 MG TABLET. PO SCH (08:47)
[2019-12-05] MEDS: ELECTROLYTE (ICU) PROTOCOL. MC SCH (08:47)
[2019-12-05] MEDS: LACTOBACILLUS RHAMNOSUS GG 1 CAPSULE. PO SCH (08:47)
[2019-12-05 10:49] VITALS: BP 119/79
--- NOTE | 2019-12-05 11:58 | RAD ---
Supine and upright views of the abdomen without comparison for fecal impaction. FINDINGS: Extensive spinal fixation hardware. K gastrostomy tube is noted of the button type. Tracheostomy tube is present. There is scattered abdominal bowel gas in a nonobstructive nonspecific pattern, with air seen to the level of the rectum. Small phleboliths are seen in the pelvis. No other calcifications. Deformity of the right femoral head is suggested but may be positional. IMPRESSION: 1. Nonobstructive nonspecific bowel gas pattern. 2. Postoperative changes as described. Electronically signed by: Mingo Perez MD (12/05/2019 11:55 AM) [id number]
--- NOTE | 2019-12-05 12:53 | PDOC ---
PULMONARY PROGRESS NOTES DATE: 12/05/19 TIME: 12:52 Subjective Patient is resting comfortably on room air Denies any shortness of breath, cough or chest pain No overnight concerns from nursing Vitals Vital Signs Date Time Temp Pulse Resp B/P (MAP) Pulse Ox O2 Delivery O2 Flow Rate FiO2 12/05/19 10:49 98.2 102 16 119/79 (92) 97 Tracheal Collar 98.2 ROS: No Nausea, No Chest Pain, No Abdominal Pain, No Increase Cough General: Alert, Oriented X4 HEENT: Other (trach midline ) Lungs: Clear Abdomen: Soft, Other (firm) Neuro Exam: Alert Extremities: No Edema Skin: Warm, Dry Medications Active Scripts Medications Dose Route/Sig Max Daily Dose Days Date Category Dose Instructions Probiotic (Lactobacillus Acidophilus) 1 Each Capsule 1 Cap GT DAILY 12/02/19 Reported Senna (Sennosides) 8.8 Mg/5 Ml Syrup 8.8 Mg GT DAILY PRN 12/02/19 Reported Ketoconazole 15 Gm Cream..g. 1 Enrrique TP DAILY PRN 12/02/19 Reported Hydrocortisone 30 Gm Cream.appl 1 Enrrique TP DAILY PRN 12/02/19 Reported Nystatin 15 Gm Oint...g. 1 Enrrique TP BID PRN 12/02/19 Reported Psyllium Fiber (Psyllium Husk) 0.52 Gm Capsule 0.52 Gm GT TID PRN 12/02/19 Reported Terbinafine Hcl 30 Gm Cream..g. 30 Gm TP BID PRN 12/02/19 Reported Desitin (Zinc Oxide) 57 Gm Cream..g. 1 Enrrique TP DAILY PRN 12/02/19 Reported Clotrimazole 15 Gm Cream..g. 1 Enrrique TP BID PRN 12/02/19 Reported Tinactin (Tolnaftate) 150 Gm [place] 1 [place] TP BID PRN 10 12/02/19 Reported [Sodium Chloride 0.9%] 1 Vial INH QID 12/02/19 Reported Miralax (Polyethylene Glycol 3350) 17 Gm Powd.pack 1 Packet GT BID PRN 2 12/02/19 Reported dissolve in water Ibuprofen 100 Mg/5 Ml Oral.susp 400 Mg GT QID PRN 12/02/19 Reported Triple Antibiotic Ointment (Neomy Sulf/Bacitrac Zn/Poly) 1 Each Oint.pack 1 Each TP BID PRN 12/02/19 Reported Preparation H Ointment (Phenyleph/Mineral Oil/Petrolat) 28 Gm Oint.appl 28 Gm RC QID PRN 12/02/19 Reported [[Boric Acid]] 2 Puff AD 3X/WEEK 12/02/19 Reported Albuterol Sulfate Conc Neb Soln (Albuterol Sulfate) 2.5 Mg/0.5 Ml Vial.neb 1 Vial NEB Q6HRS 12/02/19 Reported Tylenol Cold-Flu Severe Liq (Phenylephrine/Dm/Acetaminop/Gg) 240 Ml Liquid 20-30 Ml GT Q6-8HRS PRN 12/02/19 Reported Acetaminophen Oral Liquid (Acetaminophen) 650 Mg/20.3 Ml Solution 960 Mg GT PRN Q6HRS PRN 12/02/19 Reported Generlac (Lactulose) 10 Gm/15 Ml Solution 30 Ml GT Q12HR PRN 12/02/19 Reported Esomeprazole Magnesium 40 Mg Capsule.dr 40 Mg GT DAILY 12/02/19 Reported Fluticasone Propionate Nasal [place] (Fluticasone Propionate) 16 Gm [place].susp 2 Sprays NS DAILY PRN 12/02/19 Reported Terazosin Hcl 2 Mg Capsule 1 Cap GT DAILY 12/02/19 Reported Co Q-10 (Ubidecarenone) 200 Mg Capsule 1 Cap GT TID 12/02/19 Reported Calcium Carbonate 500 Mg/5 Ml Oral.susp 6 Ml GT DAILY 12/02/19 Reported Comments KUB IMPRESSION: 1. Nonobstructive nonspecific bowel gas pattern. 2. Postoperative changes as described. Impression . IMPRESSION: 1. Chronic respiratory failure secondary to muscular dystrophy, status post tracheotomy. 2. Acute pyelonephritis. 3. Thrombocytopenia. 4. Hyponatremia. 5. Hypokalemia. Plan . Patient is stable from a pulmonary standpoint Patient has chronic tracheostomy, capped trach during day, continue home ventilation at night Continue antibiotics per primary care Replace potassium, monitor electrolytes Follow GI recommendations secondary to fecal impaction DVT/GI prophylaxis: Lovenox/Pepcid OK to D/C from our standpoint Discussed with LOCO TAFOYA MD Dec 05, 2019 12:53
--- NOTE | 2019-12-05 12:55 | PDOC ---
Date of Service: DATE: 12/05/19 TIME: 12:53 Subjective: Subjective: Has stooled. Mother present - says she'd like him to see a urologist - normally goes to [facility]. Objective: Vital Signs: Vital Signs Date Time Temp Pulse Resp B/P (MAP) Pulse Ox O2 Delivery O2 Flow Rate FiO2 12/05/19 10:49 98.2 102 16 119/79 (92) 97 Tracheal Collar 98.2 Imaging: Abd X-Ray IMPRESSION: 1. Nonobstructive nonspecific bowel gas pattern. 2. Postoperative changes as described. PE: GEN: in WC, chronically ill LUNGS: CTAB HEART: RRR ABD: NABS, S/ND/NT EXTREM: contractures NEURO/PSYCH: A & O 3 A/P: Constipation - now controlled -- Plans to DC. Justicifation of Admission Dx: Justifications for Admission: Justification of Admission Dx: Yes Sepsis: Dehydration NIYA UNDERWOOD Dec 05, 2019 12:55
[2019-12-05] MEDS ORDERED: CEFP100S3 PO (14:02)
--- NOTE | 2019-12-05 14:02 | NUR ---
SS following for discharge planning. SS reviewed pt chart and discussed with pt RN. Pt is from home and is currently on room air. Discharge orders received for home with home healthcare. SS met with pt and pt's family in room. SS received notification that pt has private duty services at home and does not need home healthcare. Pt's RN notified.
--- NOTE | 2019-12-05 14:09 | SNU/HH DC ---
DISCHARGE WITH HOME HEALTH DISCHARGE INFORMATION: Discharge Date: Dec 05, 2019 Final Diagnosis: Problems Medical Problems: (1) Pyelonephritis Status: Acute Condition on Discharge: Stable CODE STATUS: Code Status: Full HOME HEALTH: Face to Face: I certify this patient is under my care and that I, or a nurse practitioner or physician's patient observation assistant working with me, had a face to face encounter that meets the physician face to face encounter requirements with this patient on 12/05/2019. 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 Velez - [facility] Urology - [phone] TREATMENT/EQUIPMENT ORDERS: Adaptive Equipment Issued: Wheelchair CERTIFICATION STATEMENT: Certification Statement: Certification Statement: Based on the above finding, I certify that this patient is confined to the home and needs intermittent senior living care, physical th erapy and/or speech therapy, or continues to need occupational therapy.~ This patient is under my care, and I have initiated the establishment of the plan of care.~ This patient will be followed by myself or a community physician who will periodically review the plan of care. Home Meds Active Scripts Cefpodoxime Proxetil (CEFPODOXIME PROXETIL) 100 Mg/5 Ml Susp.recon, 200 MG PO BID for UTI for 10 Days, #200 MISC Prov:LALY DUNAWAY MD 12/05/19 Reported Medications Lactobacillus Acidophilus (PROBIOTIC) 1 Each Capsule, 1 CAP GT DAILY, 0 Refills 12/02/19 Sennosides (SENNA) 8.8 Mg/5 Ml Syrup, 8.8 MG GT DAILY PRN for HARD STOOLS, MISC 12/02/19 Ketoconazole (KETOCONAZOLE) 15 Gm Cream..g., 1 VAL TP DAILY PRN for SKIN IRRITATION 12/02/19 Hydrocortisone (Hydrocortisone) 30 Gm Cream.appl, 1 VAL TP DAILY PRN for ITCHING, 0 Refills 12/02/19 Nystatin (NYSTATIN) 15 Gm Oint...g., 1 VAL TP BID PRN for RASH, #15 GM 1 Refill 12/02/19 Psyllium Husk (PSYLLIUM FIBER) 0.52 Gm Capsule, 0.52 GM GT TID PRN for CONSTIPATION, CAP 12/02/19 Terbinafine Hcl (TERBINAFINE HCL) 30 Gm Cream..g., 30 GM TP BID PRN for FUNGAL TOE INFECTION, EACH 12/02/19 Zinc Oxide (Desitin) 57 Gm Cream..g., 1 VAL TP DAILY PRN for IRRITATION TO GT STOMA, 0 Refills 12/02/19 Clotrimazole (CLOTRIMAZOLE) 15 Gm Cream..g., 1 VAL TP BID PRN for FUNGAL INFEC TION, #30 GM 12/02/19 Tolnaftate (TINACTIN) 150 Gm [place], 1 SPRAY TP BID PRN for ATHLETE'S FOOT for 10 Days, #1 EACH 0 Refills 12/02/19 [Sodium Chloride 0.9%] No Conflict Check, 1 VIAL INH QID 12/02/19 Polyethylene Glycol 3350 (MIRALAX) 17 Gm Powd.pack, 1 PACKET GT BID PRN for CONSTIPATION for 2 Days, #4 PACKET 0 Refills dissolve in water 12/02/19 Ibuprofen (Ibuprofen) 100 Mg/5 Ml Oral.susp, 400 MG GT QID PRN for INFLAMMATION, MISC 12/02/19 Neomy Sulf/Bacitrac Zn/Poly (Triple Antibiotic Ointment) 1 Each Oint.pack, 1 EACH TP BID PRN for ABRASIONS, MISC 12/02/19 Phenyleph/Mineral Oil/Petrolat (PREPARATION H OINTMENT) 28 Gm Oint.appl, 28 GM RC QID PRN for HEMORRHOID DISCOMFORT, MISC 12/02/19 [[Boric Acid]] No Conflict Check, 2 PUFF AD 3X/WEEK 12/02/19 Albuterol Sulfate (ALBUTEROL SULFATE CONC NEB SOLN) 2.5 Mg/0.5 Ml Vial.neb, 1 VIAL NEB Q6HRS, #120 VIAL 5 Refills 12/02/19 Phenylephrine/Dm/Acetaminop/Gg (TYLENOL COLD-FLU SEVERE LIQ) 240 Ml Liquid, 20- 30 ML GT Q6-8HRS PRN for CONGESTION, LIQUID 12/02/19 Acetaminophen (ACETAMINOPHEN ORAL LIQUID ) 650 Mg/20.3 Ml Solution, 960 MG GT PRN Q6HRS PRN for MILD PAIN / TEMP > 100.3'F, ML 12/02/19 Lactulose (GENERLAC) 10 Gm/15 Ml Solution, 30 ML GT Q12HR PRN for CONSTIPATION 12/02/19 Esomeprazole Magnesium (Esomeprazole Magnesium) 40 Mg Capsule.dr, 40 MG GT DAILY 12/02/19 Fluticasone Propionate (FLUTICASONE PROPIONATE NASAL SPRAY) 16 Gm [place].susp, 2 SPRAYS NS DAILY PRN for ALLERGIES 12/02/19 Terazosin Hcl (TERAZOSIN HCL) 2 Mg Capsule, 1 CAP GT DAILY for dysuria 12/02/19 Ubidecarenone (CO Q-10) 200 Mg Capsule, 1 CAP GT TID 12/02/19 Calcium Carbonate (CALCIUM CARBONATE) 500 Mg/5 Ml Oral.susp, 6 ML GT DAILY 12/02/19 LALY DUNAWAY MD Dec 05, 2019 14:09
--- NOTE | 2019-12-05 14:15 | PDOC ---
[employer] PROGRESS NOTE Date of Service DOS: DATE: 12/05/19 TIME: 14:11 Chief Complaint Chief Complaint A/P: Pyelonephritis, acute History of MS Wheelchair-bound Thrombocytopenia Bandemia could represent early sepsis present on admission but no other markers positive for sepsis given normal lactic acid Cystitis as per CT scan MAY HAVE neurogenic bladder Findings compatible with rectal fecal impaction. Evidence of chronic neurologic disease with extensive thoracolumbar spinal dorsal fusion hardware. Fibrofatty infiltration of the distal small bowel wall, possibly reflecting previous episodes of bowel inflammation. HYPOKALEMIA, on replacement chronic respiratory failure continue home ventilator D/W RN, NEEDS // home straight cath q 8 hrs prn NURSE 28 MIN PT EXAM, CHART REVIEW, > 50% OF TIME SPENT WITH EXAM, CHART REVIEW, PT CARE COORDINATION Plan GREATER THAN 100,000 CFU/ML GRAM NEGATIVE RODS on 12/03/19 at 1028 FINAL ID= [CITROBACTER KOSERI] History of Present Illness History of Present Illness Mr Holland is a 29 yo M with past medical history of muscular dystrophy, MS, trachesotmy in place who is brought by his behavioral health care manager for noticing blood in urine as per er documentation and constipation as well as abdominal pain with urination and fevers at home. Patient suffers from multiple sclerosis and apparently has been wheelchair-bound for a long time now. Patient has reported had a fever last evening but he does not seem to be coughing nor having an acute chest discomfort. Patient is laying on the stretcher in no apparent distress plan of care has been explained in detail to the patient to the best of my abilities. He will be admitted for broad-spectrum antibiotic therapy and close monitoring. His laboratory data seems quite unremarkable despite having the findings on CAT scan consistent with pyelonephritis. 12/03 mother thinks he has difficulty with voiding , will bladder scan q shift, NEEDS DPOA REVIEW has no dpoa at this time, kub negative. not much urine output recorded Consults: Pulm, GI He states he does not have any abdominal pain or back pain today. He was afebrile here in the ED. He had taken some ibuprofen. Patient currently complains of no pain. Patient denies chest pain, shortness of breath, cough, nausea, vomiting, diarrhea, headache, dizziness, focal weakness. Patient is in a motorized wheelchair. He has history of MS, trach, pneumothorax, silent aspirations, contractures, rods and screws in spine, tonsillectomy, right ear grafts. His home health company will straight cath q 8 hours and check PVR. Urology referral to [facility] in place. Liquid cefpodoximine 200mg BID for 10 days prescri bed. Vitals/I&O Vitals/I&O: Vital Signs Date Time Temp Pulse Resp B/P (MAP) Pulse Ox O2 Delivery O2 Flow Rate FiO2 12/05/19 12:55 99 Room Air 12/05/19 10:49 98.2 102 16 119/79 (92) 98.2 I & O 12/04/19 12/04/19 12/05/19 15:00 23:00 07:00 Intake Total 474 ml 0 ml 237 ml Output Total 200 ml Balance 274 ml 0 ml 237 ml Physical Exam Physical Exam: Physical Exam Physical Exam GEN.: No apparent distress. Alert and oriented to person HEENT: Head is normocephalic, atraumatic NECK: Supple. LUNGS: Clear to auscultation. HEART: RRR, S1, S2 present. Tachycardic peripheral pulses intact ABDOMEN: Soft, nontender. Distended positive bowel sounds. EXTREMITIES: Without any cyanosis. NEUROLOGIC: Cranial nerves II to XII grossly intact moves all extremities no sensory deficits PSYCHIATRIC: Unable to assess SKIN: No ulcerations General: Alert, Oriented X3, Cooperative, No acute distress Heart: Regular rate, Normal S1, Normal S2 Lungs: Clear Abdomen: Normal bowel sounds, Soft, Other (OBESE, MILD DISTENTION) Extremities: No clubbing, No cyanosis, No edema Assessment and Plan Assessmemt and Plan Problems Medical Problems: (1) Pyelonephritis Status: Acute Comment Review of Relevant I have reviewed the following items moses (where applicable) has been applied. Medications: Current Medications Medications (Trade) Dose Ordered Sig/Maximilian Route PRN Reason Start Time Stop Time Status Last Admin Dose Admin Potassium Bicarbonate (Potassium Effervescent Tablet) 40 meq 1X ONCE PEG 12/04/19 16:15 12/04/19 16:16 DC 12/04/19 16:06 Justifications for Admission Other Justification LALY DUNAWAY MD Dec 05, 2019 14:15
--- NOTE | 2019-12-05 14:17 | PDOC3 ---
Discharge Summary Visit Information Date of Admission: Dec 02, 2019 Date of Discharge: Dec 05, 2019 Admitting Diagnosis: Pyelonephritis Final Diagnosis Problems Medical Problems: (1) Pyelonephritis Status: Acute Brief Hospital Course Allergies Allergies Coded Allergies Type Severity Reaction Last Updated Verified vancomycin Allergy Severe hives 09/08/14 No Sulfa (Sulfonamide Antibiotics) Allergy Intermediate 09/08/14 No amoxicillin Adverse Reaction Intermediate diarrhea 09/08/14 No clavulanic acid Adverse Reaction Intermediate diarrhea 09/08/14 No clindamycin Adverse Reaction Intermediate diarrhea 09/08/14 No Vital Signs Vital Signs Date Time Temp Pulse Resp B/P (MAP) Pulse Ox O2 Delivery O2 Flow Rate FiO2 12/05/19 12:55 99 Room Air 12/05/19 10:49 98.2 102 16 119/79 (92) 98.2 Brief Hospital Course Mr Holland is a 29 yo M with past medical history of muscular dystrophy, MS, trachesotmy in place who is brought by his palliative care coordinator for noticing blood in urine as per er documentation and constipation as well as abdominal pain with urination and fevers at home. Patient suffers from multiple sclerosis and apparently has been wheelchair-bound for a long time now. Patient has reported had a fever last evening but he does not seem to be coughing nor having an acute chest discomfort. Patient is laying on the stretcher in no apparent distress plan of care has been explained in detail to the patient to the best of my abilities. He will be admitted for broad-spectrum antibiotic therapy and close monitoring. His laboratory data seems quite unremarkable despite having the findings on CAT scan consistent with pyelonephritis. 12/03 mother thinks he has difficulty with voiding , will bladder scan q shift, NEEDS DPOA REVIEW has no dpoa at this time, kub negative. not much urine output recorded Consults: Pulm, GI He states he does not have any abdominal pain or back pain today. He was afebrile here in the ED. He had taken some ibuprofen. Patient currently complains of no pain. Patient denies chest pain, shortness of breath, cough, nausea, vomiting, diarrhea, headache, dizziness, focal weakness. Patient is in a motorized wheelchair. He has history of MS, trach, pneumothorax, silent asp irations, contractures, rods and screws in spine, tonsillectomy, right ear grafts. His home health company will straight cath q 8 hours and check PVR. Urology referral to [facility] in place. Liquid cefpodoximine 200mg BID for 10 days prescribed. Problem list: A/P: Pyelonephritis, acute - citrobacter koseri, sensitive to cephalosporins History of MS Wheelchair-bound Thrombocytopenia Bandemia could represent early sepsis present on admission but no other markers positive for sepsis given normal lactic acid Cystitis as per CT scan MAY HAVE neurogenic bladder Findings compatible with rectal fecal impaction. Evidence of chronic neurologic disease with extensive thoracolumbar spinal dorsal fusion hardware. Fibrofatty infiltration of the distal small bowel wall, possibly reflecting previous episodes of bowel inflammation. HYPOKALEMIA, on replacement chronic respiratory failure continue home ventilator Plan D/W RN, NEEDS // home straight cath q 8 hrs prn HH NURSE 10 days cefpoxodimine GREATER THAN 100,000 CFU/ML GRAM NEGATIVE RODS on 12/03/19 at 1028 FINAL ID= [CITROBACTER KOSERI] Greater than 30 minutes spent on home with home health Discharge Information Condition at Discharge: Improved Follow Up: Weeks Disposition/Orders: D/C to Home w/ HH Scheduled Albuterol Sulfate (Albuterol Sulfate Conc Neb Soln) 2.5 Mg/0.5 Ml Vial.neb, 1 VIAL NEB Q6HRS, #120 Ref 5 (Reported) Entered as Reported by: KEVIN ZIEGLER RPH on 12/02/191917 Last Action: New Order on 12/02/191917 by KEVIN ZIEGLER RPH Calcium Carbonate (Calcium Carbonate) 500 Mg/5 Ml Oral.susp, 6 ML GT DAILY, (Reported) Entered as Reported by: KEVIN ZIEGLER RPH on 12/02/191904 Last Action: Converted on 12/02/192336 by Roly Harrison Cefpodoxime Proxetil (Cefpodoxime Proxetil) 100 Mg/5 Ml Susp.recon, 200 MG PO BID for UTI for 10 Days, #200 Prescribed by: LALY DUNAWAY MD on 12/05/19 1402 Esomeprazole Magnesium (Esomeprazole Magnesium) 40 Mg Capsule.dr, 40 MG GT DAILY, (Reported) Entered as Reported by: KEVIN ZIEGLER RPH on 12/02/191909 Last Action: Converted on 12/02/192336 by Roly Harrison Lactobacillus Acidophilus (Probiotic) 1 Each Capsule, 1 CAP GT DAILY, Ref 0 (Reported) Entered as Reported by: KEVIN ZIEGLER RPH on 12/02/191942 Last Action: Converted on 12/02/192336 by Roly Harrison Terazosin Hcl (Terazosin Hcl) 2 Mg Capsule, 1 CAP GT DAILY for dysuria, (Reported) Entered as Reported by: KEVIN ZIEGLER RPH on 12/02/191909 Last Action: Converted on 12/02/192207 by Roly Harrison Ubidecarenone (Co Q-10) 200 Mg Capsule, 1 CAP GT TID, (Reported) Entered as Reported by: KEVIN ZIEGLER RPH on 12/02/191904 Last Action: Converted on 12/02/192336 by Royl Harrison [Sodium Chloride 0.9%] , 1 VIAL INH QID, (Reported) Entered as Reported by: KEVIN ZIEGLER RPH on 12/02/191941 Last Action: New Order on 12/02/191941 by KEVIN ZIEGLER RPH [[Boric Acid]] , 2 PUFF AD 3X/WEEK, (Reported) Entered as Reported by: KEVIN ZIEGLER RPH on 12/02/191927 Last Action: New Order on 12/02/191927 by KEVIN ZIEGLER RPH Scheduled PRN Acetaminophen (Acetaminophen Oral Liquid ) 650 Mg/20.3 Ml Solution, 960 MG GT PRN Q6HRS PRN for MILD PAIN / TEMP > 100.3'F, (Reported) Entered as Reported by: KEVIN ZIEGLER RPH on 12/02/191917 Last Action: Continued on 12/02/192336 by Roly Harrison Clotrimazole (Clotrimazole) 15 Gm Cream..g., 1 VAL TP BID PRN for FUNGAL INFECTION, #30 (Reported) Entered as Reported by: KEVIN ZIEGLER RPH on 12/02/191941 Last Action: Continued on 12/02/192336 by Roly Harrison Fluticasone Propionate (Fluticasone Propionate Nasal Vanzant) 16 Gm Vanzant.susp, 2 SPRAYS NS DAILY PRN for ALLERGIES, (Reported) Entered as Reported by: KEVIN ZIEGLER RPH on 12/02/191909 Last Action: Continued on 12/02/192336 by Roly Harrison Hydrocortisone (Hydrocortisone) 30 Gm Cream.appl, 1 VAL TP DAILY PRN for ITCHING, Ref 0 (Reported) Entered as Reported by: KEVIN ZIEGLER RPH on 12/02/191941 Last Action: Continued on 12/02/192336 by Roly Harrison Ibuprofen (Ibuprofen) 100 Mg/5 Ml Oral.susp, 400 MG GT QID PRN for INFLAMMATION, (Reported) Entered as Reported by: KEVIN ZIEGLER RPH on 12/02/191927 Last Action: Continued on 12/02/192207 by Roly Harrison Ketoconazole (Ketoconazole) 15 Gm Cream..g., 1 VAL TP DAILY PRN for SKIN IRRITATION, (Reported) Entered as Reported by: KEVIN ZIEGLER RPH on 12/02/191941 Last Action: Continued on 12/02/192336 by Roly Harrison Lactulose (Generlac) 10 Gm/15 Ml Solution, 30 ML GT Q12HR PRN for CONSTIPATION, (Reported) Entered as Reported by: KEVIN ZIEGLER RPH on 12/02/191909 Last Action: Converted on 12/02/192336 by Roly Harrison Neomy Sulf/Bacitrac Zn/Poly (Triple Antibiotic Ointment) 1 Each Oint.pack, 1 EACH TP BID PRN for ABRASIONS, (Reported) Entered as Reported by: KEVIN ZIEGLER RPH on 12/02/191927 Last Action: Continued on 12/02/192336 by Roly Harrison Nystatin (Nystatin) 15 Gm Oint...g., 1 VAL TP BID PRN for RASH, #15 Ref 1 (Reported) Entered as Reported by: KEVIN ZIEGLER RPH on 12/02/191941 Last Action: Continued on 12/02/192336 by Roly Harrison Phenyleph/Mineral Oil/Petrolat (Preparation H Ointment) 28 Gm Oint.appl, 28 GM RC QID PRN for HEMORRHOID DISCOMFORT, (Reported) Entered as Reported by: KEVIN ZIEGLER RPH on 12/02/191927 Last Action: New Order on 12/02/191927 by KEVIN ZIEGLER RPH Phenylephrine/Dm/Acetaminop/Gg (Tylenol Cold-Flu Severe Liq) 240 Ml Liquid, 20- 30 ML GT Q6-8HRS PRN for CONGESTION, (Reported) Entered as Reported by: KEVIN ZIEGLER RPH on 12/02/191917 Last Action: Converted on 12/02/192336 by Roly Harrison Polyethylene Glycol 3350 (Miralax) 17 Gm Powd.pack, 1 PACKET GT BID PRN for CONSTIPATION for 2 Days, #4 Ref 0 (Reported) dissolve in water Entered as Reported by: KEVIN ZIEGLER RPH on 12/02/191927 Last Action: New Order on 12/02/191927 by KEVIN ZIEGLER RPH Psyllium Husk (Psyllium Fiber) 0.52 Gm Capsule, 0.52 GM GT TID PRN for CONSTIPATION, (Reported) Entered as Reported by: KEVIN ZIEGLER RPH on 12/02/191941 Last Action: Converted on 12/02/192336 by Roly Harrison Sennosides (Senna) 8.8 Mg/5 Ml Syrup, 8.8 MG GT DAILY PRN for HARD STOOLS, (Reported) Entered as Reported by: KEVIN ZIEGLER RPH on 12/02/191941 Last Action: New Order on 12/02/191941 by KEVIN ZIEGLER RPH Terbinafine Hcl (Terbinafine Hcl) 30 Gm Cream..g., 30 GM TP BID PRN for FUNGAL TOE INFECTION, (Reported) Entered as Reported by: KEVIN ZIEGLER RPH on 12/02/191941 Last Action: Converted on 12/02/192336 by Roly Harrison Tolnaftate (Tinactin) 150 Gm Vanzant, 1 SPRAY TP BID PRN for ATHLETE'S FOOT for 10 Days, #1 Ref 0 (Reported) Entered as Reported by: KEVIN ZIEGLER RPH on 12/02/191941 Last Action: Converted on 12/02/192336 by Roly Harrison Zinc Oxide (Desitin) 57 Gm Cream..g., 1 VAL TP DAILY PRN for IRRITATION TO GT STOMA, Ref 0 (Reported) Entered as Reported by: KEVIN ZIEGLER [facility] on 12/02/191941 Last Action: Converted on 12/02/192336 by Roly Harrison Justicifation of Admission Dx: Justifications for Admission: Justification of Admission Dx: Yes Sepsis: Dehydration LALY DUNAWAY MD Dec 05, 2019 14:17
--- NOTE | 2019-12-05 14:33 | NUR ---
Discharge Note: PT DISCHARGED HOME WITH [facility]. PT LEFT FACILITY VIA PRIVATE VEHICLE WITH GRANDMOTHER AT 1435. PT STABLE AND ALERT UPON DISCHARGE. PT PIV REMOVED FROM L AC WITHOUT COMPLICATIONS, BANDAGE APPLIED. PT EDUCATED ABOUT DISCHARGE INSTRUCTIONS, DISCHARGE MEDICATIONS, AND FOLLOW UP CARE. PT EDUCATED ABOUT FOLLOWING UP WITH UROLOGIST AT [facility]. PT VOICED NO CONERNS AT THIS TIME. PT LEFT WITH ALL PERSONAL BELONGINGS. LALY NAVARRO Discharge instructions and discharge home medications reviewed with Patient and a copy given. All questions have been answered and understanding verbalized.
== END 2019-12-05 14:35 | disposition home health service (06) | DRG 872 ==
LOC: ER 10:52 → 2 SOUTH 15:26
PROVIDERS: ADMIT Internal Medicine; ATTEND Internal Medicine
PROC: 5A12012 Performance of Cardiac Output, Single, Manual (ICD-10-PCS; principal; 2019-12-02)
PROC: 5A1935Z Respiratory Ventilation, Less than 24 Consecutive Hours (ICD-10-PCS; 2019-12-02)
PROC: 5A1935Z Respiratory Ventilation, Less than 24 Consecutive Hours (ICD-10-PCS; 2019-12-03)
PROC: 5A1935Z Respiratory Ventilation, Less than 24 Consecutive Hours (ICD-10-PCS; 2019-12-04)
DX: A41.9 Sepsis, unspecified organism (principal); N10 Acute pyelonephritis; J96.10 Chronic respiratory failure, unspecified whether with hypoxia or hypercapnia; E87.1 Hypo-osmolality and hyponatremia; G35 Multiple sclerosis; D69.6 Thrombocytopenia, unspecified; N30.91 Cystitis, unspecified with hematuria; G71.00 Muscular dystrophy, unspecified; E87.6 Hypokalemia; K56.41 Fecal impaction; Z88.0 Allergy status to penicillin; Z88.2 Allergy status to sulfonamides; Z88.8 Allergy status to other drugs, medicaments and biological substances; Z88.1 Allergy status to other antibiotic agents; Z87.01 Personal history of pneumonia (recurrent); Z99.3 Dependence on wheelchair; Z93.0 Tracheostomy status; Z93.1 Gastrostomy status
CPT/HCPCS: 36415; 71045; 74021; 74177; 76770; 80048; 80053; 81001; 83605; 83690; 85007; 85025; 85610; 87040; 87077; 87086; 87186; 93005; 94640; 96365; 99285; J0696; J0744; J1650; J7030; Q9967; G0378; J7613